=== PATIENT | female | born 1945 | race Caucasian/White ===

== ENCOUNTER 2016-07-12 12:44 | Inpatient (IN) | payer MEDICARE, OTHER ==
[~2016-07-12] VITALS: Ht 167.6 cm; Wt 123.4 kg
[2016-07-12 12:53] VITALS: BP 76/65; PULSE 86; RESP 16; TEMP 97.8; O2SAT 99
[2016-07-12] MEDS ORDERED: BACITRACIN 1 GM OINT TP ONE (13:30)
[2016-07-12] MEDS ORDERED: NACL 0.9% 1,000 ML IV ONE ×3 (13:30→16:15)
[2016-07-12 13:38] LABS: BASOPHILS # (AUTO) 0.1 K/uL (0.0-0.2); BASOPHILS % (AUTO) 0.5 % (0.0-2.0); EOSINOPHILS # (AUTO) 0.2 K/uL (0.0-0.4); EOSINOPHILS % (AUTO) 1.5 % (0.0-4.0); HEMATOCRIT 39.9 % (36-48); HEMOGLOBIN 13.4 g/dL (12.0-16.0); LYMPHOCYTES # (AUTO) 1.9 K/uL (1.0-5.5); MEAN CORPUSCULAR HEMOGLOBIN 31 pg (27-31); MEAN CORPUSCULAR HGB CONC 34 % (32-36); MEAN CORPUSCULAR VOLUME 93 fL (79.0-98.0); MONOCYTES # (AUTO) 1.3 K/uL (0.0-1.0); MONOCYTES % (AUTO) 12.5 % (1.7-9.3); NEUTROPHILS # (AUTO) 7.1 K/uL (1.8-7.7); NEUTROPHILS % (AUTO) 67.5 % (40.0-70.0); PLATELET COUNT (AUTO) 292 K/uL (130-430); WHITE BLOOD COUNT (AUTO) 10.6 K/uL (4.8-10.8)
[2016-07-12 13:47] LABS: ANION GAP 14 (5-15); CALCIUM 8.6 mg/dL (8.4-11.0); CHLORIDE 96 mmol/L (98-107); CREATININE 3.49 mg/dL (0.55-1.30); GLUCOSE 158 mg/dL (70-99); INR 1.1 (0.8-1.2); POTASSIUM 3.7 mmol/L (3.5-5.1); SODIUM SERUM 141 mmol/L (136-145); UREA NITROGEN, BLOOD 33 mg/dL (8-21)
[2016-07-12 13:52] LABS: ALANINE AMINOTRANSFERASE 23 U/L (12-78); ALBUMIN 3.7 g/dL (3.4-4.8); ASPARTATE AMINOTRANSFERASE 18 U/L (10-37); CHOLESTEROL 191 mg/dL (<200); HDL CHOLESTEROL 57 mg/dL (>55); TOTAL BILIRUBIN 0.5 mg/dL (0.0-1.0)
[2016-07-12 13:58] LABS: LDL CHOLESTEROL 105 mg/dL (<100); TRIGLYCERIDES 175 mg/dL (30-150)
[2016-07-12] MEDS ORDERED: BACL10TA PO (15:47)
[2016-07-12] MEDS ORDERED: ZOLP10TA6 PO (15:47)
[2016-07-12] MEDS ORDERED: ALEN70TA27 PO (15:47)
[2016-07-12] MEDS ORDERED: METF-303 PO (15:47)
[2016-07-12] MEDS ORDERED: IBUP-1480 PO (15:47)
[2016-07-12] MEDS ORDERED: FLUO-119 PO (15:47)
[2016-07-12] MEDS ORDERED: MECL-123 PO (15:47)
[2016-07-12] MEDS ORDERED: LEVO500T89 PO (15:47)
[2016-07-12] MEDS ORDERED: FURO10VI27 IVP (15:47)
[2016-07-12] MEDS ORDERED: GABA300S PO (15:47)
[2016-07-12] MEDS ORDERED: ENAL20TA PO (15:47)
[2016-07-12] MEDS ORDERED: HYDR-1189 PO (15:47)
[2016-07-12] MEDS ORDERED: SIMV80TA74 PO (15:47)
[2016-07-12] MEDS ORDERED: ASPI-1077 PO (15:47)
[2016-07-12 16:56] LABS: BILIRUBIN,URINE 2+ (NEGATIVE); BLOOD, URINE 1+ (NEGATIVE); CLARITY/URINE CLOUDY (CLEAR); COLOR,URINE YELLOW (YELLOW); GLUCOSE,URINE NEGATIVE (NEGATIVE); KETONES,URINE TRACE (NEGATIVE); LEUKOCYTE ESTERASE ,URINE NEGATIVE (NEGATIVE); NITRITE, URINE NEGATIVE (NEGATIVE); PROTEIN URINE 1+ (NEGATIVE); UROBILINOGEN,URINE 0.2 (0.2-1.0)
[2016-07-12 17:33] LABS: BACTERIA,URINE MODERATE /HPF (None Seen)
[2016-07-12 17:35] LABS: COARSE GRANULAR CASTS,URINE 0-10 /LPF (None Seen); FINE GRANULAR CASTS,URINE 0-10 /LPF (None Seen); MUCUS,URINE None Seen /LPF (None Seen); URINE AMORPHOUS URATE 2+ /HPF (None Seen)
[2016-07-12 19:30] VITALS: BP 85/46; PULSE 73; RESP 14; TEMP 98.4; O2SAT 99
[2016-07-12 20:00] VITALS: BP 85/46; PULSE 73; RESP 14; TEMP 98.4; O2SAT 99
[2016-07-12] MEDS ORDERED: PIPERACILLIN/TAZO 3.375/DEX-IS 50 ML IV SCH (20:30)
[2016-07-12] MEDS ORDERED: DEXTROSE 50% JECT 50 ML DISP.SYRIN IVP PRN (20:30)
[2016-07-12] MEDS ORDERED: ACETAMINOPHEN 325 MG TABLET PO PRN (20:30)
[2016-07-12 21:00] VITALS: BP 90/40; PULSE 76; RESP 20; O2SAT 97
[2016-07-12] MEDS: NACL 0.9% 1,000 ML IV SCH (21:11)
[2016-07-12] MEDS: BACLOFEN 10 MG TABLET PO SCH (21:28)
[2016-07-12] MEDS ORDERED: LEVOFLOXACIN 250 MG/D5W 50 ML IV ONE ×2 (21:30→22:07)
[2016-07-12 22:00] VITALS: BP 104/50; PULSE 76; RESP 19; O2SAT 99
[2016-07-12 23:00] VITALS: BP 82/43; PULSE 75; RESP 16; O2SAT 95
[2016-07-12] MEDS ORDERED: NOREPINEPHRINE BITARTRATE 4 MG in D5W 246 ML IV PRN (23:45)
[2016-07-12] MEDS ORDERED: NOREPINEPHRINE 4 MG/4 ML VIAL IV ONE (23:56)
[2016-07-13] VITALS (44 sets, daily range): BP systolic 85–121; BP diastolic 34–67; PULSE 69–89; RESP 13–28; TEMP 96.9–99.2; O2SAT 90–97
[2016-07-13] MEDS: ZOLPIDEM TARTRATE 5 MG TABLET PO PRN ×2 (00:13→21:08)
[2016-07-13] MEDS: NACL 0.9% 1,000 ML IV SCH ×3 (05:38→17:34)
[2016-07-13 06:36] LABS: BASOPHILS # (AUTO) 0.1 K/uL (0.0-0.2); BASOPHILS % (AUTO) 0.7 % (0.0-2.0); EOSINOPHILS # (AUTO) 0.1 K/uL (0.0-0.4); EOSINOPHILS % (AUTO) 1.5 % (0.0-4.0); HEMATOCRIT 35.4 % (36-48); HEMOGLOBIN 11.9 g/dL (12.0-16.0); LYMPHOCYTES # (AUTO) 1.6 K/uL (1.0-5.5); LYMPHOCYTES % (AUTO) 17.6 % (20.5-51.5); MEAN CORPUSCULAR HEMOGLOBIN 31 pg (27-31); MEAN CORPUSCULAR HGB CONC 34 % (32-36); MEAN CORPUSCULAR VOLUME 93 fL (79.0-98.0); MONOCYTES % (AUTO) 11.2 % (1.7-9.3); NEUTROPHILS # (AUTO) 6.4 K/uL (1.8-7.7); PLATELET COUNT (AUTO) 268 K/uL (130-430); RED CELL DISTRIBUTION WIDTH 12.1 % (9.0-15.0); WHITE BLOOD COUNT (AUTO) 9.2 K/uL (4.8-10.8)
[2016-07-13 07:16] LABS: ALANINE AMINOTRANSFERASE 23 U/L (12-78); ALBUMIN 3.1 g/dL (3.4-4.8); ANION GAP 8 (5-15); ASPARTATE AMINOTRANSFERASE 34 U/L (10-37); CALCIUM 7.8 mg/dL (8.4-11.0); CHLORIDE 103 mmol/L (98-107); CREATININE 2.56 mg/dL (0.55-1.30); GLUCOSE 111 mg/dL (70-99); POTASSIUM 3.4 mmol/L (3.5-5.1); SODIUM SERUM 141 mmol/L (136-145); TOTAL BILIRUBIN 0.4 mg/dL (0.0-1.0); TOTAL PROTEIN, SERUM 6.4 g/dL (6.4-8.3); UREA NITROGEN, BLOOD 35 mg/dL (8-21)
[2016-07-13] MEDS: BACLOFEN 10 MG TABLET PO SCH ×2 (08:58→21:08)
[2016-07-13] MEDS: ASPIRIN 81 MG TAB.CHEW PO SCH (08:58)
[2016-07-13] MEDS: PANTOPRAZOLE SODIUM 40 MG/VIAL (PROTONIX) IVP SCH (08:58)
[2016-07-13] MEDS: FLUoxetine HCL 20 MG CAPSULE (PROzac) PO SCH (08:58)
[2016-07-13] MEDS: LACTOBACILLUS RHAMNOSUS GG 1 CAP CAPSULE PO SCH ×2 (09:01→21:08)
[2016-07-13] MEDS ORDERED: HYDROCORTISONE SOD SUCC 100 MG/2 ML VIAL IVP ONE (11:15)
[2016-07-13] MEDS: PIPERACILLIN/TAZO 3.375/DEX-IS 50 ML IV SCH ×3 (11:43→23:17)
[2016-07-13] MEDS ORDERED: POTASSIUM CHLORIDE 20 MEQ TAB.PRT.SR PO ONE (17:15)
[2016-07-13] MEDS: INSULIN REGULAR, HUMAN 100 UNITS/ML, 10 ML VIAL (novoLIN R) SUBCUT PRN ×2 (17:39→23:31)
[2016-07-13] MEDS: HYDROCORTISONE SOD SUCC 100 MG/2 ML VIAL IVP SCH (21:08)
[2016-07-13] MEDS: MORPHINE 2 MG/ML INJ. SYRINGE IVP PRN (21:09)
[2016-07-14] VITALS (16 sets, daily range): BP systolic 99–131; BP diastolic 54–91; PULSE 59–91; RESP 16–25; TEMP 97.2–98.9; O2SAT 91–97; Ht 167.6 cm; Wt 123.4 kg
[2016-07-14] MEDS: PIPERACILLIN/TAZO 3.375/DEX-IS 50 ML IV SCH ×4 (05:59→23:35)
[2016-07-14] MEDS: HYDROCORTISONE SOD SUCC 100 MG/2 ML VIAL IVP SCH ×3 (05:59→20:56)
[2016-07-14 06:29] LABS: ALANINE AMINOTRANSFERASE 23 U/L (12-78); ALBUMIN 3.1 g/dL (3.4-4.8); ANION GAP 6 (5-15); ASPARTATE AMINOTRANSFERASE 25 U/L (10-37); CALCIUM 8.1 mg/dL (8.4-11.0); CHLORIDE 108 mmol/L (98-107); CREATININE 1.64 mg/dL (0.55-1.30); GLUCOSE 141 mg/dL (70-99); POTASSIUM 3.9 mmol/L (3.5-5.1); SODIUM SERUM 142 mmol/L (136-145); TOTAL BILIRUBIN 0.4 mg/dL (0.0-1.0); TOTAL PROTEIN, SERUM 6.5 g/dL (6.4-8.3); UREA NITROGEN, BLOOD 31 mg/dL (8-21)
[2016-07-14 07:14] LABS: BASOPHILS % (AUTO) 0.3 % (0.0-2.0); EOSINOPHILS % (AUTO) 0.1 % (0.0-4.0); HEMATOCRIT 32.8 % (36-48); LYMPHOCYTES # (AUTO) 1.1 K/uL (1.0-5.5); LYMPHOCYTES % (AUTO) 11.9 % (20.5-51.5); MEAN CORPUSCULAR HEMOGLOBIN 31 pg (27-31); MEAN CORPUSCULAR HGB CONC 34 % (32-36); MEAN CORPUSCULAR VOLUME 93 fL (79.0-98.0); MONOCYTES # (AUTO) 0.5 K/uL (0.0-1.0); MONOCYTES % (AUTO) 5.4 % (1.7-9.3); NEUTROPHILS # (AUTO) 7.2 K/uL (1.8-7.7); NEUTROPHILS % (AUTO) 82.3 % (40.0-70.0); PLATELET COUNT (AUTO) 209 K/uL (130-430); RED BLOOD CELL COUNT(AUTO) 3.53 MIL/uL (4.2-6.2); RED CELL DISTRIBUTION WIDTH 11.9 % (9.0-15.0)
[2016-07-14 07:31] LABS: WHITE BLOOD COUNT (AUTO) 8.8 K/uL (4.8-10.8)
[2016-07-14] MEDS: FLUoxetine HCL 20 MG CAPSULE (PROzac) PO SCH (08:52)
[2016-07-14] MEDS: BACLOFEN 10 MG TABLET PO SCH ×2 (08:52→20:33)
[2016-07-14] MEDS: ASPIRIN 81 MG TAB.CHEW PO SCH (08:52)
[2016-07-14] MEDS: PANTOPRAZOLE SODIUM 40 MG/VIAL (PROTONIX) IVP SCH (08:53)
[2016-07-14] MEDS: MORPHINE 2 MG/ML INJ. SYRINGE IVP PRN ×3 (08:53→23:38)
[2016-07-14] MEDS: LACTOBACILLUS RHAMNOSUS GG 1 CAP CAPSULE PO SCH ×2 (08:53→20:33)
[2016-07-14] MEDS: INSULIN REGULAR, HUMAN 100 UNITS/ML, 10 ML VIAL (novoLIN R) SUBCUT PRN (11:25)
[2016-07-14] MEDS: NACL 0.9% 1,000 ML IV SCH (14:26)
[2016-07-14] MEDS ORDERED: LEVOFLOXACIN 250 MG/D5W 50 ML IV SCH (21:00)
[2016-07-14] MEDS: ZOLPIDEM TARTRATE 5 MG TABLET PO PRN (23:34)
[2016-07-15 03:47] VITALS: BP 128/56; PULSE 64; RESP 16; TEMP 97.2; O2SAT 93
[2016-07-15] MEDS: PIPERACILLIN/TAZO 3.375/DEX-IS 50 ML IV SCH ×2 (05:40→12:59)
[2016-07-15] MEDS: NACL 0.9% 1,000 ML IV SCH ×2 (05:43→08:54)
[2016-07-15 07:15] LABS: ANION GAP 7 (5-15); CALCIUM 8.5 mg/dL (8.4-11.0); CHLORIDE 109 mmol/L (98-107); CREATININE 1.01 mg/dL (0.55-1.30); GLUCOSE 120 mg/dL (70-99); POTASSIUM 3.7 mmol/L (3.5-5.1); SODIUM SERUM 142 mmol/L (136-145); UREA NITROGEN, BLOOD 23 mg/dL (8-21)
[2016-07-15 08:00] VITALS: BP 125/62; PULSE 65; RESP 16; TEMP 98; O2SAT 97
[2016-07-15] MEDS: PANTOPRAZOLE SODIUM 40 MG/VIAL (PROTONIX) IVP SCH (08:37)
[2016-07-15] MEDS: LACTOBACILLUS RHAMNOSUS GG 1 CAP CAPSULE PO SCH (08:37)
[2016-07-15] MEDS: ASPIRIN 81 MG TAB.CHEW PO SCH (08:38)
[2016-07-15] MEDS: FLUoxetine HCL 20 MG CAPSULE (PROzac) PO SCH (08:38)
[2016-07-15] MEDS: BACLOFEN 10 MG TABLET PO SCH (08:38)
[2016-07-15] MEDS: HYDROCORTISONE SOD SUCC 100 MG/2 ML VIAL IVP SCH (08:38)
[2016-07-15] MEDS: MORPHINE 2 MG/ML INJ. SYRINGE IVP PRN (08:55)
[2016-07-15] MEDS ORDERED: BALSAM PERU/CASTOR OIL 60 GM OINT...G. TP SCH (09:00)
[2016-07-15 11:25] VITALS: BP 126/71; PULSE 58; RESP 19; TEMP 97.9; O2SAT 93
[2016-07-15 13:10] VITALS: BP 126/71; PULSE 64; RESP 16; TEMP 97.5; O2SAT 98
[2016-07-15 15:37] VITALS: BP 116/56; PULSE 63; RESP 16; TEMP 97.1; O2SAT 93
== END 2016-07-15 15:25 | disposition home or self-care (01) | DRG 871 ==
LOC: SED 12:44 → SMU 16:49 → SIC 19:25 → STU 07-14 12:20
PROVIDERS: ADMIT Internal Medicine Hospice and Palliative Medicine; ATTEND Internal Medicine Hospice and Palliative Medicine
DX: A41.9 Sepsis, unspecified organism (principal); R65.21 Severe sepsis with septic shock; N17.0 Acute kidney failure with tubular necrosis; G93.41 Metabolic encephalopathy; I50.33 Acute on chronic diastolic (congestive) heart failure; I13.0 Hypertensive heart and chronic kidney disease with heart failure and stage 1 through stage 4 chronic kidney disease, or unspecified chronic kidney disease; E78.5 Hyperlipidemia, unspecified; E11.22 Type 2 diabetes mellitus with diabetic chronic kidney disease; N18.9 Chronic kidney disease, unspecified; Z96.653 Presence of artificial knee joint, bilateral; Z90.49 Acquired absence of other specified parts of digestive tract; Z90.710 Acquired absence of both cervix and uterus; Z88.6 Allergy status to analgesic agent; Z88.1 Allergy status to other antibiotic agents; Z79.899 Other long term (current) drug therapy
CPT/HCPCS: 36415; 70450-TC; 71010; 76700-TC; 80048; 80053; 80061; 81000-TC; 82962; 83605; 83880; 84484; 85025; 85610-TC; 85730-TC; 87040-TC; 87081; 87086; 87230-TC; 93005; 93306; 93970; 96360; 96361; 97110-GP; 97116-GP; 97530-GP; 99285; C9113; J1720; J1815; J1956; J2270; J2543; J7030; J7040; J7050

== ENCOUNTER 2016-10-18 10:37 | Inpatient (IN) | payer OTHER ==
[2016-10-18] VITALS (13 sets, daily range): BP systolic 117–152; BP diastolic 59–84; PULSE 74–108; RESP 12–35; TEMP 97.3–98.4; O2SAT 66–95
[~2016-10-18] VITALS: Ht 165.1 cm; Wt 116.6 kg
[~2016-10-18 10:37] MED LIST: ALEN70TA27 PO; ASPI-1077 PO; BACL10TA PO; ENAL20TA PO; FLUO-119 PO; FURO10VI27 IVP; GABA300S PO; HYDR-1189 PO; IBUP-1480 PO; LEVO500T89 PO; MECL-123 PO; METF-303 PO; SIMV80TA74 PO; ZOLP10TA6 PO
--- NOTE | 2016-10-18 10:37 | NUR ---
Patient to ER bed 2 to gown for evaluation. Side rails up. Report received by Andrew.
--- NOTE | 2016-10-18 10:38 | NUR ---
ER at bedside examining patient.
--- NOTE | 2016-10-18 10:39 | NUR ---
Pt bib Bls squad 61. Reports family found pt lethargic this morning and difficult to wake up. Pt is lethargic. Oriented to name and place. Closes eyes while speaking. Pt with difficulty breathing placed on 2L/min, NC. O2 sat is 88%, Abg to be drawn.
--- NOTE | 2016-10-18 10:40 | NUR ---
# 20 gauge angiocath placed to left hand. Use of asceptic technique. Opsite placed over site. Blood return noted. Blood for lab drawn from site. Flushed with 10 cc of normal saline. No evidence of infiltration noted. Patient tolerated well.
--- NOTE | 2016-10-18 10:41 | NUR ---
EKG performed at by ELLEN Easton. Physician given copy of EKG for review.
[2016-10-18] MEDS ORDERED: NALOXONE HCL 2 MG/2 ML SYR ONE (10:54)
[2016-10-18] MEDS ORDERED: NALOXONE HCL 0.4 MG/ML AMP (NARCAN) IVP ONE (11:00)
--- NOTE | 2016-10-18 11:00 | NUR ---
Pt cont with dyspnea. O2 is 89%. Placed on nonrebreather.
[2016-10-18 11:04] LABS: BASOPHILS # (AUTO) 0.1 K/uL (0.0-0.2); BASOPHILS % (AUTO) 1.2 % (0.0-2.0); EOSINOPHILS % (AUTO) 0.2 % (0.0-4.0); HEMATOCRIT 37.7 % (36-48); HEMOGLOBIN 12.6 g/dL (12.0-16.0); LYMPHOCYTES # (AUTO) 0.8 K/uL (1.0-5.5); LYMPHOCYTES % (AUTO) 8.1 % (20.5-51.5); MEAN CORPUSCULAR HEMOGLOBIN 31 pg (27-31); MEAN CORPUSCULAR HGB CONC 34 % (32-36); MEAN CORPUSCULAR VOLUME 92 fL (79.0-98.0); MONOCYTES # (AUTO) 0.9 K/uL (0.0-1.0); MONOCYTES % (AUTO) 9.1 % (1.7-9.3); NEUTROPHILS # (AUTO) 8.1 K/uL (1.8-7.7); NEUTROPHILS % (AUTO) 81.4 % (40.0-70.0); PLATELET COUNT (AUTO) 228 K/uL (130-430); RED BLOOD CELL COUNT(AUTO) 4.13 MIL/uL (4.2-6.2); RED CELL DISTRIBUTION WIDTH 12.8 % (9.0-15.0); WHITE BLOOD COUNT (AUTO) 9.9 K/uL (4.8-10.8)
--- NOTE | 2016-10-18 11:07 | NUR ---
Pt cont to desat. 85%. Placed on Bipap 16/6, 20, 50%
[2016-10-18 11:16] LABS: PROTHROMBIN TIME 11.2 SECS (9.5-12.5)
[2016-10-18 11:17] LABS: ANION GAP 6 (5-15); CALCIUM 8.6 mg/dL (8.4-11.0); CHLORIDE 105 mmol/L (98-107); CREATININE 1.38 mg/dL (0.55-1.30); GLUCOSE 251 mg/dL (70-99); POTASSIUM 4.9 mmol/L (3.5-5.1); SODIUM SERUM 138 mmol/L (136-145); UREA NITROGEN, BLOOD 24 mg/dL (8-21)
[2016-10-18 11:21] LABS: ALANINE AMINOTRANSFERASE 220 U/L (12-78); ALBUMIN 3.4 g/dL (3.4-4.8); ASPARTATE AMINOTRANSFERASE 335 U/L (10-37); TOTAL BILIRUBIN 0.9 mg/dL (0.0-1.0)
--- NOTE | 2016-10-18 11:25 | NUR ---
# 16 FR Michael catheter with use of sterile technique. Immediate return of 300 cc Clear fay urine noted. Bedside drainage bag placed below level of bladder. Urine sample collected and sent to lab. Pt tolerated procedure well.
[2016-10-18] MEDS ORDERED: FUROSEMIDE 20 MG/2 ML VIAL IVP ONE ×2 (11:30→11:45)
[2016-10-18 11:38] LABS: BILIRUBIN,URINE NEGATIVE (NEGATIVE); CLARITY/URINE CLEAR (CLEAR); COLOR,URINE YELLOW (YELLOW); GLUCOSE,URINE NEGATIVE (NEGATIVE); KETONES,URINE NEGATIVE (NEGATIVE); LEUKOCYTE ESTERASE ,URINE NEGATIVE (NEGATIVE); NITRITE, URINE NEGATIVE (NEGATIVE); PROTEIN URINE TRACE (NEGATIVE); UROBILINOGEN,URINE 0.2 (0.2-1.0)
[2016-10-18 11:39] LABS: BLOOD, URINE TRACE (NEGATIVE)
[2016-10-18] MEDS ORDERED: NEU300 PO (11:44)
[2016-10-18] MEDS ORDERED: OXYC-133 PO (11:44)
[2016-10-18] MEDS ORDERED: FURO-149 PO (11:44)
--- NOTE | 2016-10-18 11:45 | NUR ---
Medication reconciliation completed with information provided by daughter at bedside. Any prior medication reconciliation on file was reviewed and corrected.
[2016-10-18 11:47] LABS: ABG TOTAL HEMOGLOBIN 13.5 G/dL (12.0-18.0); BLOOD GAS PH 7.277 (7.350-7.450)
[2016-10-18 11:48] LABS: BLOOD GAS COHb% 0.9 % (0.5-1.5); BLOOD GAS HHB 13.8 % (0.0-6.0); BLOOD O2Hb% 84.7 % (94.0-97.0)
[2016-10-18 11:49] LABS: BLOOD GAS PH 7.336 (7.350-7.450)
[2016-10-18 11:50] LABS: ABG TOTAL HEMOGLOBIN 13.4 G/dL (12.0-18.0); BLOOD GAS BASE EXCESS -2.6 mmol/L (-3.0-3.0); BLOOD GAS COHb% 0.7 % (0.5-1.5); BLOOD GAS HHB 3.8 % (0.0-6.0); BLOOD O2Hb% 94.9 % (94.0-97.0)
[2016-10-18 12:11] LABS: BARBITURATE, URINE NEGATIVE (NEG <=200); METHAMPHETAMINES SCREEN,URINE NEGATIVE (NEG <=500); URINE AMPHETAMINE NEGATIVE (NEG <=500); URINE METHADONE NEGATIVE (NEG <=200)
[2016-10-18 12:12] LABS: BENZODIAZEPINE, URINE NEGATIVE (NEG <=150); CANNABINOID, URINE NEGATIVE (NEG <=50); COCAINE, URINE NEGATIVE (NEG <=150); OPIATE, URINE NEGATIVE (NEG <=100); PHENCYCLIDINE SCREEN,URINE NEGATIVE (NEG <=25); UR TRICYCLIC ANTIDEPRESSANTS NEGATIVE (NEG <=300); URINE OXYCODONE SCREEN POSITIVE (NEG <=100); URINE PROPOXYPHENE SCREEN NEGATIVE (NEG <=300)
[2016-10-18 12:22] LABS: ACETAMINOPHEN < 1 ug/mL (1-30); ALCOHOL, BLOOD < 3 mg/dL (<10)
--- NOTE | 2016-10-18 13:50 | NUR ---
Patient will be admitted to [facility]. Admitted to ICU unit. Will go to room bed 5. Belongings list completed. Summary report printed. Report be given at bedside to RN. Tyrese . Transfer to ICU bed 5 via ACLS protocol. Licensed nurse present. IV present no signs or symptoms of infiltration.
--- NOTE | 2016-10-18 14:00 | NUR ---
Transfer Pt received from ER. Report given by ELLEN Johnson. Vital signs stable. Pt is AAO X1, non verbal. Chest rise and fall noted. Pt on Bipap O2 50%, 15/6 BUR20.
--- NOTE | 2016-10-18 15:04 | NUR ---
CONSULT CALLED DOCTOR DESIREE BRIGGS SPOKE WITH DAISY REASON RESPIRATORY FAILURE REQUESTING DOCTOR KARLA
[2016-10-18] MEDS ORDERED: IPRATROPIUM BROM 0.5 MG/2.5 ML VIAL.NEB (ATROVENT) INH PRN (15:45)
[2016-10-18] MEDS ORDERED: DEXTROSE 50% JECT 50 ML DISP.SYRIN IVP PRN (15:45)
[2016-10-18] MEDS ORDERED: ALBUTEROL SULFATE 0.083% 2.5 MG/3 ML VIAL.NEB INH PRN (15:45)
--- NOTE | 2016-10-18 15:45 | NUR ---
Dr. Rivera at bedside with patient and family.
--- NOTE | 2016-10-18 16:00 | NUR ---
Patient Update Patient noted to be more awake and arousable to pain, oriented x2, able to verbalize needs. Son, Favio, at bedside with patient. Patient asked for water, informed patient of NPO status, provided mouth swabs. Patient denies pain or discomfort. Patient repositioned. Will continue to monitor.
[2016-10-18] MEDS ORDERED: DEXTROSE 50%-WATER 50 ML DISP.SYRIN IVP PRN ×2 (16:30)
[2016-10-18] MEDS ORDERED: GLUCOSE 15 GM GEL (in 37.5 GM TUBE) PO PRN ×2 (16:30)
[2016-10-18] MEDS: FLUoxetine HCL 20 MG CAPSULE (PROzac) PO SCH ×2 (17:48→21:00)
--- NOTE | 2016-10-18 18:00 | NUR ---
Patient Update Patient verbalized feeling nauseous, provided patient with emesis parrish and paged Dr. Rivera. Awaiting call back.
--- NOTE | 2016-10-18 18:45 | NUR ---
Dr. Syed at bedside with patient and family. Dr. Syed aware of patient c/o nausea. New orders made, will continue with plan of care.
[2016-10-18] MEDS: ALBUTEROL SULFATE 0.083% 2.5 MG/3 ML VIAL.NEB INH SCH ×2 (19:39→23:00)
[2016-10-18] MEDS: IPRATROPIUM BROM 0.5 MG/2.5 ML VIAL.NEB (ATROVENT) INH SCH ×2 (19:40→23:00)
[2016-10-18] MEDS: ONDANSETRON HCL 4 MG/2 ML VIAL IVP PRN (19:42)
[2016-10-18] MEDS: LEVOFLOXACIN 500 MG/D5W 100 ML IV SCH (19:45)
--- NOTE | 2016-10-18 19:55 | NUR ---
Patient Update New IV sites on RFA #20G and LFA #20G, no infiltration or erythema noted. Removed IV on R hand 20G d/t loose catheter, catheter tip intact, bleeding controlled. Administered zofran IVP PRN for nausea. Patient also receiving breathing tx, but c/o increased nausea. Notified RT, stopped breathing treatment, returned patient back to mask 50%. Will continue to monitor.
--- NOTE | 2016-10-18 21:00 | NUR ---
ASSESSMENT Pt opens eyes to verbal stimuli. Speech clear. Pt c/o nausea, after receiving Zofran. Oxygen in use, via mask 50%. O2 level 88- 93% with mask, HR 90's. 2 Saline lock sites present, right and left forearms 20ga, no redness or swelling noted @ sites. Left foot with nancy wrap and ortho shoe. Left lower leg with swelling, and redness.
--- NOTE | 2016-10-18 21:30 | NUR ---
TALKED TO DR RAMÍREZ , NOTIFIED OF TROPONIN RESULT AND CLARIFIED THAT PT IS NPO AND NO IV ORDER.SHE SAID THAT ITS OK AND WILL RE-EVAL IN AM.
[2016-10-18] MEDS: HEPARIN SODIUM,PORCINE 5000 UNITS/ML VIAL SUBCUT SCH (22:42)
[2016-10-18] MEDS: METOCLOPRAMIDE HCL 10 MG/2 ML VIAL IVP PRN (23:46)
[2016-10-19] VITALS (15 sets, daily range): BP systolic 107–138; BP diastolic 49–76; PULSE 74–85; RESP 11–27; TEMP 97.6–99.7; O2SAT 90–97; Ht 165.1 cm; Wt 116.6 kg
[2016-10-19] MEDS: metroNIDAZOLE 500 mg/NS 100 ML IV SCH ×5 (00:31→23:47)
[2016-10-19] MEDS: INSULIN REGULAR, HUMAN 100 UNITS/ML, 10 ML VIAL (novoLIN R) SUBCUT PRN ×2 (00:36→05:45)
[2016-10-19] MEDS: ALBUTEROL SULFATE 0.083% 2.5 MG/3 ML VIAL.NEB INH SCH ×6 (03:00→23:00)
[2016-10-19] MEDS: IPRATROPIUM BROM 0.5 MG/2.5 ML VIAL.NEB (ATROVENT) INH SCH ×6 (03:00→23:00)
[2016-10-19] MEDS: ONDANSETRON HCL 4 MG/2 ML VIAL IVP PRN ×3 (03:12→20:18)
[2016-10-19] MEDS: METOCLOPRAMIDE HCL 10 MG/2 ML VIAL IVP PRN ×3 (05:10→23:45)
--- NOTE | 2016-10-19 05:26 | NUR ---
DR GEOVANNA Steinberg notified regarding Pt's c/o pain. Orders received. Toradol 30mg IVP Q 8HR PRN.
[2016-10-19] MEDS ORDERED: KETOROLAC TROMETHAMINE 30 MG VIAL IVP PRN (05:30)
[2016-10-19 06:39] LABS: BASOPHILS # (AUTO) 0.1 K/uL (0.0-0.2); BASOPHILS % (AUTO) 0.6 % (0.0-2.0); EOSINOPHILS % (AUTO) 0.1 % (0.0-4.0); HEMATOCRIT 34.9 % (36-48); LYMPHOCYTES # (AUTO) 1.4 K/uL (1.0-5.5); LYMPHOCYTES % (AUTO) 12.4 % (20.5-51.5); MEAN CORPUSCULAR HEMOGLOBIN 31 pg (27-31); MEAN CORPUSCULAR HGB CONC 34 % (32-36); MEAN CORPUSCULAR VOLUME 91 fL (79.0-98.0); MONOCYTES # (AUTO) 1.1 K/uL (0.0-1.0); MONOCYTES % (AUTO) 10.1 % (1.7-9.3); NEUTROPHILS # (AUTO) 8.5 K/uL (1.8-7.7); NEUTROPHILS % (AUTO) 76.8 % (40.0-70.0); PLATELET COUNT (AUTO) 205 K/uL (130-430); RED BLOOD CELL COUNT(AUTO) 3.83 MIL/uL (4.2-6.2); RED CELL DISTRIBUTION WIDTH 12.4 % (9.0-15.0); WHITE BLOOD COUNT (AUTO) 11.1 K/uL (4.8-10.8)
[2016-10-19 06:45] LABS: ALANINE AMINOTRANSFERASE 184 U/L (12-78); ALBUMIN 3.3 g/dL (3.4-4.8); ANION GAP 10 (5-15); ASPARTATE AMINOTRANSFERASE 191 U/L (10-37); CALCIUM 9.1 mg/dL (8.4-11.0); CHLORIDE 104 mmol/L (98-107); CREATININE 1.04 mg/dL (0.55-1.30); GLUCOSE 130 mg/dL (70-99); POTASSIUM 3.6 mmol/L (3.5-5.1); SODIUM SERUM 141 mmol/L (136-145); TOTAL BILIRUBIN 0.6 mg/dL (0.0-1.0); TOTAL PROTEIN, SERUM 6.6 g/dL (6.4-8.3); UREA NITROGEN, BLOOD 20 mg/dL (8-21)
--- NOTE | 2016-10-19 07:45 | NUR ---
AM Shift Assessment Patient AAOx4, able to verbalize needs. Patient's son, Favio, at bedside. Respirations even and unlabored on 4L O2 via NC. Patient denies any pain, n/v currently. Skin warm and dry. IV SL 20G on RFA and LFA, both sites intact, patent, no infiltration or erythema noted. L foot with dressing, nancy bandage, and boot, clean, dry, and intact. No drainage noted from site. Peripheral pulses palpable on all extremities. Michael in place draining fay urine. Adventitious lung sounds. Heart sounds regular, SR on monitor, HR 79. Bed locked in lowest position. Call light in reach. Will continue to monitor.
[2016-10-19] MEDS: HEPARIN SODIUM,PORCINE 5000 UNITS/ML VIAL SUBCUT SCH ×2 (08:35→20:27)
--- NOTE | 2016-10-19 08:35 | NUR ---
Nutrition Update Dain scale of 12 noted. Pt admitted for Respiratory failure. Diet: NPO BMI: 42.8 kg/m2. RD to follow per nutrition care standards.
--- NOTE | 2016-10-19 08:38 | NUR ---
Called Dr. Falcon with a consult, spoke with Bushra from the exchange
[2016-10-19 08:39] LABS: BLOOD GAS BASE EXCESS 4.3 mmol/L (-3.0-3.0); BLOOD GAS PH 7.446 (7.350-7.450)
[2016-10-19 08:40] LABS: ABG TOTAL HEMOGLOBIN 12.5 G/dL (12.0-18.0); BLOOD GAS HHB 5.6 % (0.0-6.0); BLOOD O2Hb% 94.4 % (94.0-97.0)
[2016-10-19] MEDS: FLUoxetine HCL 20 MG CAPSULE (PROzac) PO SCH ×3 (08:40→20:18)
[2016-10-19] MEDS: ASPIRIN 81 MG TAB.CHEW PO SCH (08:40)
[2016-10-19] MEDS: ENALAPRIL MALEATE 10 MG TABLET (VASOTEC) PO SCH (08:49)
[2016-10-19] MEDS ORDERED: FUROSEMIDE 20 MG/2 ML VIAL IVP SCH (09:00)
--- NOTE | 2016-10-19 10:00 | NUR ---
Dr. Rivera at bedside with patient and family member. Addendum: 10/19/16 at 1427 by Germania Ceja RN CORRECTION TO TIME: [id number]
--- NOTE | 2016-10-19 10:47 | NUR ---
REPORT RECEIVED FROM ELLEN BEVERLY IN ICU. PT TO BE TRANSFERRED TO [facility] ON TELEMETRY MONITORING.
--- NOTE | 2016-10-19 11:38 | NUR ---
PATIENT TRANSFERRED FROM ICU BED TO MED-SURG BED. PLACED ON MONITOR, O2 SENSOR. SON AT BEDSIDE. SLEEVE SETTER SAFETY STITCH FROM [employer] AT BEDSIDE SPEAKING WITH SON. PATIENT REPORTS PAIN WITH EVERY MOVEMENT, TOUCH OR REPOSITIONING. REQUIRED FIVE PERSON ASSIST TO TRANSFER WITH BACK BOARD FROM ONE BED TO THE NEXT. TRANSPORTED ON 4LPM O2 VIA NC, ON MONITOR, SINUS RHYTHM, O2 SATURATIONS 93-97%
--- NOTE | 2016-10-19 11:39 | NUR ---
Transfer to [facility] Patient stable for transfer to [facility] via bed/gurney with continuous monitoring and O2 4L via NC. No acute distress noted. All belongings sent with patient. [id number] given to Prisca HUGHES with SBAR tool.
--- NOTE | 2016-10-19 12:58 | NUR ---
PT VOMITING, MEDICATED WITH ZOFRAN.
--- NOTE | 2016-10-19 13:40 | NUR ---
PATIENT STILL DRY HEAVING, MEDICATIONS HELD FOR NOW. PATIENT HAD BEEN SIPPING WATER AND THAT CAUSED THE VOMITING.
[2016-10-19] MEDS ORDERED: COMMUNICATION ORDER XX ONE (14:15)
--- NOTE | 2016-10-19 14:50 | NUR ---
DR RAMÍREZ IN TO SEE PATIENT NEW ORDERS FOR COMPAZINE GIVEN. PT NO LONGER VOMITING BUT IS REPORTING NAUSEA. PT ATE JELLO AND DRANK A JUICE AND A DIET 7UP WITHOUT VOMITING.
[2016-10-19] MEDS: PROCHLORPERAZINE EDISYLATE 10 MG/2 ML VIAL IVP PRN (15:06)
--- NOTE | 2016-10-19 16:19 | NUR ---
PT REPOSITIONED TO LEFT SIDE OF BED SO THAT SHE WOULD HAVE M ORE ROOM TO TURN TO THE RIGHT. PT STATED SHE WAS TOO WEAK TO MOVE HERSELF IN BED. PT STARTED YELLING THAT SHE COULDNT BREATHE WHILE BEING REPOSITIONED. O2SATS NORMAL, PT REMAINED PINK AND WAS ABLE TO YELL IN FULL SENTENCES
[2016-10-19] MEDS: LEVOFLOXACIN 500 MG/D5W 100 ML IV SCH (18:19)
--- NOTE | 2016-10-19 18:22 | NUR ---
CLOSING NOTES PT NOTED TO HAVE TEMP OF 99.6, 100.4...REASSESSED AT 1820 AND TEMP WAS 98.6 PT CONTINUES TO C/O NAUSEA. GIVEN REGLAN IV. PT STATES SHE HAD STOPPED TAKING LASIX APPROX 3 DAYS PRIOR TO SURGERY WHICH WAS THREE DAYS AGO. STATES LASIX MADE HER NAUSEOUS AND DUE TO HER DISABILITIES SHE ALSO HAD A HARD TIME GETTING TO THE RESTROOM. PT SON IS AT BEDSIDE. POC EXPLAINED TO HIM AND DAUGHTER. ADVISED THEM MD WOULD BE IN VERY EARLY TOMORROW AND TO BE HERE IF THEY WOULD LIKE TO SPEAK TO HIM.
--- NOTE | 2016-10-19 19:15 | NUR ---
Initial Notes Recvd pt in bed a/a/o x3 with son @ bedside. No s/s of any distress noted. IV noted to L and R f/a g 20, no infiltrate with good blood return. Bue are strong with weakness to ble noted. Dressing is noted to L ankle, no bleeding and c/o pain noted. Edema noted to BLE. Discussed plan of care with pt and verbalized understanding. Bed in low position, with call light within reach.Will cont to monitor.
--- NOTE | 2016-10-19 20:20 | NUR ---
Admin Zofran prn for n/v Admin zofran for n/v. Will cont to monitor.
[2016-10-19] MEDS: KETOROLAC TROMETHAMINE 30 MG VIAL IVP PRN (23:45)
--- NOTE | 2016-10-19 23:50 | NUR ---
Admin Reglan prn for n/v Admin Reglan for n/v. Will cont to monitor.
--- NOTE | 2016-10-20 01:50 | NUR ---
Rounds Pt is comfortably sleeping at this time. No s/s of any distress noted. Call light within reach. Will cont to monitor.
[2016-10-20] MEDS: PROCHLORPERAZINE EDISYLATE 10 MG/2 ML VIAL IVP PRN (03:02)
--- NOTE | 2016-10-20 03:02 | NUR ---
Admin compazine prn for n/v Admin compazine prn for n/v. Will cont monitor.
[2016-10-20 04:09] VITALS: BP 134/62; PULSE 75; RESP 15; TEMP 97.7; O2SAT 96
[2016-10-20] MEDS: metroNIDAZOLE 500 mg/NS 100 ML IV SCH ×2 (05:14→11:57)
[2016-10-20] MEDS: ONDANSETRON HCL 4 MG/2 ML VIAL IVP PRN ×2 (05:16→12:34)
--- NOTE | 2016-10-20 07:00 | NUR ---
Final notes Pt is comfortably resting @ this time. No s/s of any distress noted. All needs met and anticipated by noc nurses. Bed in low position with side rails up x2. Call light within reach, endorsed.
[2016-10-20 07:11] LABS: BASOPHILS # (AUTO) 0.1 K/uL (0.0-0.2); BASOPHILS % (AUTO) 0.7 % (0.0-2.0); EOSINOPHILS % (AUTO) 0.4 % (0.0-4.0); HEMATOCRIT 34.2 % (36-48); HEMOGLOBIN 11.5 g/dL (12.0-16.0); LYMPHOCYTES # (AUTO) 1.4 K/uL (1.0-5.5); LYMPHOCYTES % (AUTO) 16.5 % (20.5-51.5); MEAN CORPUSCULAR HEMOGLOBIN 31 pg (27-31); MEAN CORPUSCULAR HGB CONC 34 % (32-36); MEAN CORPUSCULAR VOLUME 93 fL (79.0-98.0); MONOCYTES % (AUTO) 11.4 % (1.7-9.3); NEUTROPHILS # (AUTO) 6.3 K/uL (1.8-7.7); PLATELET COUNT (AUTO) 209 K/uL (130-430); RED BLOOD CELL COUNT(AUTO) 3.69 MIL/uL (4.2-6.2); RED CELL DISTRIBUTION WIDTH 12.1 % (9.0-15.0); WHITE BLOOD COUNT (AUTO) 8.8 K/uL (4.8-10.8)
[2016-10-20 07:18] LABS: CHLORIDE 103 mmol/L (98-107); CREATININE 1.38 mg/dL (0.55-1.30); POTASSIUM 3.5 mmol/L (3.5-5.1); SODIUM SERUM 138 mmol/L (136-145); UREA NITROGEN, BLOOD 22 mg/dL (8-21)
[2016-10-20 07:44] LABS: ANION GAP < 3 (5-15)
[2016-10-20 08:00] VITALS: BP 128/59; PULSE 74; RESP 20; TEMP 98.9; O2SAT 96
--- NOTE | 2016-10-20 08:00 | NUR ---
OPENING NOTE PATIENT IS AWAKE, ALERT. SKIN PINK, WARM AND DRY. LUNGS CLEAR TO BASES. NO CRACKLES NOTED.
[2016-10-20] MEDS: ENALAPRIL MALEATE 10 MG TABLET (VASOTEC) PO SCH (08:29)
[2016-10-20] MEDS: ASPIRIN 81 MG TAB.CHEW PO SCH (08:29)
[2016-10-20] MEDS: HEPARIN SODIUM,PORCINE 5000 UNITS/ML VIAL SUBCUT SCH ×2 (08:31→20:51)
[2016-10-20 09:16] LABS: CALCIUM 8.8 mg/dL (8.4-11.0); GLUCOSE 136 mg/dL (70-99)
--- NOTE | 2016-10-20 10:00 | NUR ---
PATIENT MEDICATED PER ORDERS. REPORTS ONLY MILD NAUSEA, NO DRY HEAVING TODAY
[2016-10-20 11:28] VITALS: BP 139/76; PULSE 70; RESP 19; TEMP 97.6; O2SAT 95
--- NOTE | 2016-10-20 11:47 | NUR ---
consultation was called for DR SIMONS AND SPOKE TO CARROLL [phone]
[2016-10-20] MEDS: ALBUTEROL SULFATE 0.083% 2.5 MG/3 ML VIAL.NEB INH SCH ×3 (11:50→20:54)
[2016-10-20] MEDS: IPRATROPIUM BROM 0.5 MG/2.5 ML VIAL.NEB (ATROVENT) INH SCH ×3 (11:50→20:54)
--- NOTE | 2016-10-20 12:00 | NUR ---
PATIENT BG 168. PT JUST ATE FULL SUGAR SHERBERT AND NOW REPORTS NAUSEA AGAIN. WILL HOLD INSULIN PENDING PT EATING MORE FOOD
--- NOTE | 2016-10-20 13:50 | NUR ---
[address] [place] [address] ADMIN BY ELLEN ROLLINS. PT STATED SHE WAS NAUSEATED. REASSESSED PT AT 1340 AND SHE DENIES NAUSEA, WAS ABLE TO DRINK SOME OF HER BOOST
[2016-10-20 14:44] LABS: ALBUMIN 3.1 g/dL (3.4-4.8); BILIRUBIN,DIRECT 0.2 mg/dL (0.0-0.3); TOTAL BILIRUBIN 0.5 mg/dL (0.0-1.0); TOTAL PROTEIN, SERUM 6.2 g/dL (6.4-8.3)
[2016-10-20 15:26] VITALS: BP 138/71; PULSE 80; RESP 19; TEMP 98.3; O2SAT 93
--- NOTE | 2016-10-20 16:35 | NUR ---
Wound Evaluation: Wound Consult ordered for Low Dain Score. Patient evaluated for a low Dain score of 12, now a 17. Patient was awake, alert, oriented and received in a Yadira Bed with an Atmos Air 9000 mattress. Patient is able to turn in bed. Skin is fair (-). Past medical history: Diabetes Mellitus, Obesity, Chronic Pain, Hypertension, Depression, and Bilateral Knee Replacement. Recommend encourage and assist patient as needed with repositioning every 2 hours with pillow support. Elevate, off-load and float bilateral heels with pillows. Offload pressure areas with pillows for pressure re-distribution. Perform skin care and monitor skin integrity Q shift. Use moisture barrier cream on moisture susceptible areas QID and PRN for soiling. Skin assessment: 1) Left Foot: Status post recent second and third toe surgery to repair hammertoe per patient. Surgical dressing is clean, dry and intact. Per patient and her son, the doctor who performed the surgery did not want the dressing removed. Assessed left extremity, and it was similar in color, temperature, and edema to the right extremity. No apparent infection (WBC is 8.8 today, and was 11.1 yesterday), but unable to tell without removing the dressing and assessing the wound sites. Recommend: Continue to monitor surgical site every shift. Assess wound if patient allows. Contact wound care if surgical site worsens or patient allows assessment. Will continue to follow as a Dain.
--- NOTE | 2016-10-20 17:05 | NUR ---
DR REYNOLDS IN TO SEE PATIENT. STATED HE WOULD MAKE NO CHANGES TO PATIENT'S ORDERS.
[2016-10-20] MEDS: LEVOFLOXACIN 500 MG/D5W 100 ML IV SCH (18:04)
--- NOTE | 2016-10-20 20:00 | NUR ---
ROUNDS PATIENT IN BED, NOT IN DISTRESS, VITALS STABLE. DENIES ANY PAIN AND DISCOMFORT AT THIS TIME. NEEDS ATTENDED TO. REPOSITIONED AND MADE COMFORTABLE. SAFETY AND FALL PRECAUTION MEASURES IN PLACED. BED IN LOW AND LOCKED POSITION. BED ALARM ON. CALL LIGHT PLACED WITHIN REACH.
[2016-10-20] MEDS: KETOROLAC TROMETHAMINE 30 MG VIAL IVP PRN (20:45)
[2016-10-20] MEDS: FLUoxetine HCL 20 MG CAPSULE (PROzac) PO SCH (20:48)
--- NOTE | 2016-10-20 21:15 | NUR ---
MEDICATIONS DUE MEDICATIONS GIVEN SCHEDULED, TOLERATED WELL. WILL CONTINUE TO MONITOR.
[2016-10-21] VITALS (7 sets, daily range): BP systolic 135–142; BP diastolic 64–77; PULSE 70–81; RESP 16–20; TEMP 97–98; O2SAT 90–95
--- NOTE | 2016-10-21 | NUR ---
PATIENT RESTING: Patient resting quietly. No acute distress noted. Vital signs within normal range.
--- NOTE | 2016-10-21 07:25 | NUR ---
am notes: patient lying on the bed,sleeping. report given at bedside by night nurse vidhya. no distress.
--- NOTE | 2016-10-21 07:30 | NUR ---
added notes: with feldman draining to yellow urine.
[2016-10-21] MEDS: IPRATROPIUM BROM 0.5 MG/2.5 ML VIAL.NEB (ATROVENT) INH SCH ×3 (07:42→15:52)
[2016-10-21] MEDS: ALBUTEROL SULFATE 0.083% 2.5 MG/3 ML VIAL.NEB INH SCH ×3 (07:42→15:52)
[2016-10-21] MEDS: ASPIRIN 81 MG TAB.CHEW PO SCH (09:10)
[2016-10-21] MEDS: ENALAPRIL MALEATE 10 MG TABLET (VASOTEC) PO SCH (09:11)
[2016-10-21] MEDS: HEPARIN SODIUM,PORCINE 5000 UNITS/ML VIAL SUBCUT SCH (09:12)
--- NOTE | 2016-10-21 09:27 | NUR ---
rounds: very sleepy. assisted up and due po meds given . well tolerated.
--- NOTE | 2016-10-21 09:28 | NUR ---
md rounds: patient seen by dr herr in the room. informed md that pt's daughter is requesting for physical therapist to see the pt.
--- NOTE | 2016-10-21 11:15 | NUR ---
physical therapist: patient ambulated with physical therapist assisted via fww,well tolerated slowly,o2 saturation=93%.
--- NOTE | 2016-10-21 11:40 | NUR ---
blood sugar: blood sugar taken,no insulin coverage per sliding scale.
--- NOTE | 2016-10-21 13:40 | NUR ---
acosta feldman: feldman removed as ordered.
[2016-10-21] MEDS ORDERED: LEVO500T20 PO (14:33)
--- NOTE | 2016-10-21 15:10 | NUR ---
rounds: resting. stable.daughter at bedside.
--- NOTE | 2016-10-21 16:00 | NUR ---
void: voided per [facility] post dc feldman.
--- NOTE | 2016-10-21 17:36 | NUR ---
dc notes: transitional care documents and prescriptions given to patient,verbalized understanding. personal belongings sent home with the patient. iv removed,dry gauze applied,no bleeding noted. wheeled by geophysical observer to the lobby. accompanied home by patient's son and daughter in stable condition.
--- NOTE | 2016-10-24 10:59 | NUR ---
Discharge Follow Up Phone Call [employer]ider phoned patient, , and left a voicemail message on 10/23/16. [employer] WORKER phoned patient today and spoke with patient's daughter, Meme. Meme stated that patient has been weak and tired but is feeling better every day and gaining strength. They filled patient's prescription and patient is taking her medications as directed. Patient has not been using her blood glucose monitor as directed since her return home. Meme will be sure that patient checks her sugar this morning. Patient has a follow up appointment with her PCP on 10/25/16. Patient lives alone but patient's son and daughter are staying with her while she regains her strength. They have no questions or concerns at this time. No further follow up calls needed.
== END 2016-10-21 17:36 | disposition home or self-care (01) | DRG 196 ==
LOC: SED 10:37 → SIC 12:10 → STU 10-19 11:15 → SMU 10-20 11:39
PROVIDERS: ADMIT Internal Medicine Hospice and Palliative Medicine; ATTEND Internal Medicine Hospice and Palliative Medicine
DX: J84.9 Interstitial pulmonary disease, unspecified (principal); J96.02 Acute respiratory failure with hypercapnia; G93.41 Metabolic encephalopathy; E87.2 Acidosis; Z68.41 Body mass index [BMI] 40.0-44.9, adult; I50.30 Unspecified diastolic (congestive) heart failure; E78.5 Hyperlipidemia, unspecified; F32.9 Major depressive disorder, single episode, unspecified; E66.01 Morbid (severe) obesity due to excess calories; G89.29 Other chronic pain; I11.0 Hypertensive heart disease with heart failure; G47.33 Obstructive sleep apnea (adult) (pediatric); E11.9 Type 2 diabetes mellitus without complications; T40.2X5A Adverse effect of other opioids, initial encounter; Z96.653 Presence of artificial knee joint, bilateral; Z88.8 Allergy status to other drugs, medicaments and biological substances; Z88.1 Allergy status to other antibiotic agents; Z79.84 Long term (current) use of oral hypoglycemic drugs; Z79.891 Long term (current) use of opiate analgesic; Z79.899 Other long term (current) drug therapy; Y92.009 Unspecified place in unspecified non-institutional (private) residence as the place of occurrence of the external cause
CPT/HCPCS: 36415; 36600; 71010; 76700-TC; 80048; 80053; 80076; 80307; 81003; 82803-TC; 82962; 83605; 83880; 84484; 85025; 85610-TC; 85730-TC; 87040-TC; 87081; 93005; 93306; 94640; 94760; 96374; 96375; 97110-GP; 99285; G0480; G0481; G0482; J0780; J1644; J1815; J1885; J1940; J1956; J2310; J2405; J2765; J3490; J7040; J7050

== ENCOUNTER 2017-02-13 13:40 | Emergency (ER) | payer OTHER ==
[~2017-02-13] VITALS: Ht 167.6 cm; Wt 127.0 kg
[~2017-02-13 13:40] MED LIST changes: +FURO-149 PO; -FURO10VI27 IVP; -GABA300S PO; -HYDR-1189 PO; -IBUP-1480 PO; +LEVO500T20 PO; -LEVO500T89 PO; +NEU300 PO
[2017-02-13 13:45] VITALS: BP_SYST 112
[2017-02-13] MEDS ORDERED: MORPHINE 4 MG/ML INJ. SYRINGE IVP ONE (14:00)
[2017-02-13] MEDS ORDERED: ONDANSETRON HCL 4 MG/2 ML VIAL IVP ONE (14:00)
[2017-02-13 14:18] LABS: BASOPHILS # (AUTO) 0.1 K/uL (0.0-0.2); BASOPHILS % (AUTO) 0.4 % (0.0-2.0); EOSINOPHILS % (AUTO) 0.1 % (0.0-4.0); HEMATOCRIT 39.1 % (36-48); HEMOGLOBIN 12.6 g/dL (12.0-16.0); LYMPHOCYTES % (AUTO) 7.1 % (20.5-51.5); MEAN CORPUSCULAR HEMOGLOBIN 30 pg (27-31); MEAN CORPUSCULAR HGB CONC 32 % (32-36); MEAN CORPUSCULAR VOLUME 93 fL (79.0-98.0); MONOCYTES # (AUTO) 0.9 K/uL (0.0-1.0); MONOCYTES % (AUTO) 6.4 % (1.7-9.3); NEUTROPHILS # (AUTO) 11.7 K/uL (1.8-7.7); PLATELET COUNT (AUTO) 257 K/uL (130-430); RED BLOOD CELL COUNT(AUTO) 4.23 MIL/uL (4.2-6.2); RED CELL DISTRIBUTION WIDTH 11.9 % (9.0-15.0); WHITE BLOOD COUNT (AUTO) 13.7 K/uL (4.8-10.8)
[2017-02-13 14:28] LABS: ANION GAP 9 (5-15); CALCIUM 10.2 mg/dL (8.4-11.0); CHLORIDE 104 mmol/L (98-107); CREATININE 0.98 mg/dL (0.55-1.30); GLUCOSE 130 mg/dL (70-99); POTASSIUM 3.7 mmol/L (3.5-5.1); SODIUM SERUM 141 mmol/L (136-145); UREA NITROGEN, BLOOD 22 mg/dL (8-21)
[2017-02-13 14:31] LABS: BILIRUBIN,URINE NEGATIVE (NEGATIVE); BLOOD, URINE NEGATIVE (NEGATIVE); CLARITY/URINE SL HAZY (CLEAR); COLOR,URINE YELLOW (YELLOW); GLUCOSE,URINE NEGATIVE (NEGATIVE); KETONES,URINE NEGATIVE (NEGATIVE); LEUKOCYTE ESTERASE ,URINE 1+ (NEGATIVE); NITRITE, URINE NEGATIVE (NEGATIVE); PROTEIN URINE TRACE (NEGATIVE); UROBILINOGEN,URINE 0.2 (0.2-1.0)
[2017-02-13 14:32] LABS: PROTHROMBIN TIME 10.9 SECS (9.5-12.5)
[2017-02-13 14:33] LABS: ALANINE AMINOTRANSFERASE 22 U/L (12-78); ALBUMIN 3.8 g/dL (3.4-4.8); ASPARTATE AMINOTRANSFERASE 23 U/L (10-37); TOTAL BILIRUBIN 0.4 mg/dL (0.0-1.0)
[2017-02-13 14:41] LABS: BACTERIA,URINE MODERATE /HPF (None Seen); RBC,URINE 0-3 /HPF (0-3)
[2017-02-13 14:42] LABS: MUCUS,URINE 1+ /LPF (None Seen)
[2017-02-13] MEDS ORDERED: cefTRIAXone 1 GM IVPB PREMIX 50 ML IV ONE (14:45)
[2017-02-13 15:45] VITALS: BP_SYST 122
== END 2017-02-13 15:45 | disposition short-term general hospital (02) ==
LOC: SED 13:40
DX: S06.5X9A Traumatic subdural hemorrhage with loss of consciousness of unspecified duration, initial encounter (principal); N39.0 Urinary tract infection, site not specified; R79.89 Other specified abnormal findings of blood chemistry; E11.9 Type 2 diabetes mellitus without complications; I10 Essential (primary) hypertension; E78.00 Pure hypercholesterolemia, unspecified; M54.30 Sciatica, unspecified side; Z88.1 Allergy status to other antibiotic agents; Z88.6 Allergy status to analgesic agent; W19.XXXA Unspecified fall, initial encounter; Y93.89 Activity, other specified; Y92.009 Unspecified place in unspecified non-institutional (private) residence as the place of occurrence of the external cause; Y99.8 Other external cause status
CPT/HCPCS: 36415; 70450; 71010; 74176; 80053; 81000; 84484; 85025; 85610; 85730; 87086; 93005; 96365; 96375; 99285; J0696; J2270; J2405; 87186-TC

== ENCOUNTER 2017-03-05 21:07 | Inpatient (IN) | payer OTHER ==
[~2017-03-05] VITALS: Ht 167.6 cm; Wt 126.6 kg
[2017-03-05 21:07] VITALS: BP_SYST 130
[2017-03-05] MEDS ORDERED: FURO-150 PO (21:39)
[2017-03-05] MEDS ORDERED: HYDR-1189 PO (21:39)
[2017-03-05] MEDS ORDERED: LEVE1000 PO (21:39)
[2017-03-05] MEDS ORDERED: ALBUTEROL SULFATE 0.083% 2.5 MG/3 ML VIAL.NEB IH ONE (22:00)
[2017-03-05 22:27] LABS: HEMOGLOBIN 13.4 g/dL (12.0-16.0); MEAN CORPUSCULAR HEMOGLOBIN 31 pg (27-31); MEAN CORPUSCULAR HGB CONC 33 % (32-36); MEAN CORPUSCULAR VOLUME 92 fL (79.0-98.0); PLATELET COUNT (AUTO) 264 K/uL (130-430); RED BLOOD CELL COUNT(AUTO) 4.36 MIL/uL (4.2-6.2); RED CELL DISTRIBUTION WIDTH 11.7 % (9.0-15.0); WHITE BLOOD COUNT (AUTO) 20.3 K/uL (4.8-10.8)
[2017-03-05 22:32] LABS: INR 1.2 (0.8-1.2); PROTHROMBIN TIME 13.4 SECS (9.5-12.5)
[2017-03-05 22:39] LABS: ANION GAP 15 (5-15); CALCIUM 9.4 mg/dL (8.4-11.0); CHLORIDE 101 mmol/L (98-107); CREATININE 1.03 mg/dL (0.55-1.30); GLUCOSE 146 mg/dL (70-99); SODIUM SERUM 140 mmol/L (136-145); UREA NITROGEN, BLOOD 26 mg/dL (8-21)
[2017-03-05 22:44] LABS: ALANINE AMINOTRANSFERASE 40 U/L (12-78); ASPARTATE AMINOTRANSFERASE 44 U/L (10-37); TOTAL BILIRUBIN 1.4 mg/dL (0.0-1.0)
[2017-03-05] MEDS ORDERED: FUROSEMIDE 40 MG/4 ML VIAL IVP ONE (22:45)
[2017-03-05 23:00] LABS: BAND % (MANUAL) 2 % (0-6); BASOPHILS % (MANUAL) 0 % (0-2); EOSINOPHILS % (MANUAL) 0 % (0-7); LYMPHOCYTES % (MANUAL) 7 % (20-46); MONOCYTES % (MANUAL) 12 % (0-11)
[2017-03-05] MEDS ORDERED: LEVOFLOXACIN 500 MG/D5W 100 ML IV ONE (23:30)
[2017-03-06] VITALS (8 sets, daily range): BP systolic 106–129
[2017-03-06 00:18] LABS: BILIRUBIN,URINE NEGATIVE (NEGATIVE); CLARITY/URINE CLEAR (CLEAR); COLOR,URINE YELLOW (YELLOW); GLUCOSE,URINE NEGATIVE (NEGATIVE); KETONES,URINE NEGATIVE (NEGATIVE); LEUKOCYTE ESTERASE ,URINE NEGATIVE (NEGATIVE); NITRITE, URINE NEGATIVE (NEGATIVE); PROTEIN URINE TRACE (NEGATIVE); UROBILINOGEN,URINE 0.2 (0.2-1.0)
[2017-03-06 00:20] LABS: BLOOD, URINE TRACE (NEGATIVE)
[2017-03-06 00:34] LABS: BACTERIA,URINE FEW /HPF (None Seen); HYALINE CASTS, URINE 0-10 /LPF (None Seen); MUCUS,URINE None Seen /LPF (None Seen); RBC,URINE 0-3 /HPF (0-3); URINE AMORPHOUS URATE 1+ /HPF (None Seen); WBC,URINE 0-3 /HPF (0-3)
[2017-03-06] MEDS ORDERED: HYDROcodone/ACETAMIN 5-325 MG TAB (NORCO/ VICODIN) PO PRN ×2 (01:30→15:30)
[2017-03-06] MEDS ORDERED: INSULIN REGULAR, HUMAN 100 UNITS/ML, 10 ML VIAL (novoLIN R) SUBCUT PRN ×2 (01:30→08:30)
[2017-03-06] MEDS: ALBUTEROL SULFATE 0.083% 2.5 MG/3 ML VIAL.NEB INH SCH ×3 (05:39→19:55)
[2017-03-06] MEDS ORDERED: ALBUTEROL SULFATE 0.083% 2.5 MG/3 ML VIAL.NEB INH PRN (08:30)
[2017-03-06] MEDS ORDERED: GLUCOSE 15 GM GEL (in 37.5 GM TUBE) PO PRN ×2 (08:45)
[2017-03-06] MEDS ORDERED: DEXTROSE 50%-WATER 50 ML DISP.SYRIN IVP PRN ×2 (08:45)
[2017-03-06] MEDS ORDERED: FUROSEMIDE 20 MG TABLET PO SCH (09:00)
[2017-03-06] MEDS ORDERED: FLUoxetine HCL 20 MG CAPSULE (PROzac) PO SCH (09:00)
[2017-03-06] MEDS: GABAPENTIN 300 MG CAPSULE PO SCH ×3 (09:24→21:04)
[2017-03-06] MEDS: levETIRAcetam 500 MG TABLET PO SCH ×2 (09:25→21:03)
[2017-03-06] MEDS ORDERED: FUROSEMIDE 20 MG/2 ML VIAL IVP ONE (11:45)
[2017-03-06] MEDS ORDERED: LEVOFLOXACIN 500 MG/D5W 100 ML IV SCH (21:00)
[2017-03-06] MEDS ORDERED: ZOLPIDEM TARTRATE 5 MG TABLET PO SCH (21:00)
[2017-03-06] MEDS ORDERED: SIMVASTATIN 40 MG TABLET PO SCH (21:00)
[2017-03-06] MEDS ORDERED: metFORMIN HCL 500 MG TABLET PO SCH (21:00)
[2017-03-07] MEDS ORDERED: FUROSEMIDE 20 MG/2 ML VIAL IVP SCH (09:00)
== END 2017-03-06 23:50 | disposition short-term general hospital (02) | DRG 291 ==
LOC: SED 21:07 → STU 03-06 01:22
DX: I11.0 Hypertensive heart disease with heart failure (principal); J96.01 Acute respiratory failure with hypoxia; I50.9 Heart failure, unspecified; J44.9 Chronic obstructive pulmonary disease, unspecified; E11.9 Type 2 diabetes mellitus without complications; E03.9 Hypothyroidism, unspecified; E78.5 Hyperlipidemia, unspecified; Z87.891 Personal history of nicotine dependence; Z90.710 Acquired absence of both cervix and uterus; Z90.49 Acquired absence of other specified parts of digestive tract; Z88.1 Allergy status to other antibiotic agents; Z88.8 Allergy status to other drugs, medicaments and biological substances; Z79.899 Other long term (current) drug therapy; I50.33 Acute on chronic diastolic (congestive) heart failure
CPT/HCPCS: 36415; 36600; 70450-TC; 71010; 71250-TC; 76705; 80053; 81000-TC; 82803-TC; 82962; 83605; 83880; 84484; 85007; 85027; 85610-TC; 85730-TC; 87040-TC; 87081; 87230-TC; 93005; 93306; 93970; 94640; 94760; 96365; 96375; 99285; J1815; J1940; J1956

== ENCOUNTER 2017-04-30 16:06 | Inpatient (IN) | payer OTHER ==
[~2017-04-30] VITALS: Ht 167.6 cm; Wt 127.0 kg
[~2017-04-30 16:06] MED LIST changes: -ALEN70TA27 PO; +AMI200 PO; -ASPI-1077 PO; -ENAL20TA PO; -FLUO-119 PO; +FLUT1DIS3 INH; +GABA-531 PO; +GLUXR500 PO; +HYDR-3610 PO; +LEVE1000 PO; -LEVO500T20 PO; -MECL-123 PO; +MECL12.584 PO; -METF-303 PO; -NEU300 PO; +ONDA4TAB5 PO; +PRO20 PO; +SIMV20TA2 PO; -SIMV80TA74 PO
[2017-04-30 16:11] VITALS: BP_SYST 121
[2017-04-30 17:45] LABS: BASOPHILS % (AUTO) 0.5 % (0.0-2.0); HEMATOCRIT 35.4 % (36-48); HEMOGLOBIN 11.7 g/dL (12.0-16.0); LYMPHOCYTES # (AUTO) 0.8 K/uL (1.0-5.5); LYMPHOCYTES % (AUTO) 8.9 % (20.5-51.5); MEAN CORPUSCULAR HEMOGLOBIN 31 pg (27-31); MEAN CORPUSCULAR HGB CONC 33 % (32-36); MEAN CORPUSCULAR VOLUME 93 fL (79.0-98.0); MONOCYTES # (AUTO) 0.4 K/uL (0.0-1.0); MONOCYTES % (AUTO) 3.7 % (1.7-9.3); NEUTROPHILS # (AUTO) 8.3 K/uL (1.8-7.7); NEUTROPHILS % (AUTO) 86.9 % (40.0-70.0); PLATELET COUNT (AUTO) 316 K/uL (130-430); RED BLOOD CELL COUNT(AUTO) 3.82 MIL/uL (4.2-6.2); RED CELL DISTRIBUTION WIDTH 13.9 % (9.0-15.0); WHITE BLOOD COUNT (AUTO) 9.5 K/uL (4.8-10.8)
[2017-04-30 18:00] LABS: ANION GAP 4 (5-15); CALCIUM 8.8 mg/dL (8.4-11.0); CHLORIDE 101 mmol/L (98-107); CREATININE 0.97 mg/dL (0.55-1.30); GLUCOSE 140 mg/dL (70-99); POTASSIUM 4.5 mmol/L (3.5-5.1); SODIUM SERUM 136 mmol/L (136-145); UREA NITROGEN, BLOOD 14 mg/dL (8-21)
[2017-04-30 18:05] LABS: ALANINE AMINOTRANSFERASE 19 U/L (12-78); ALBUMIN 3.5 g/dL (3.4-4.8); ASPARTATE AMINOTRANSFERASE 14 U/L (10-37); PROTHROMBIN TIME 10.6 SECS (9.5-12.5); TOTAL BILIRUBIN 0.4 mg/dL (0.0-1.0)
[2017-04-30] MEDS ORDERED: methylPREDNISolone SOD SUCC/PF 62.5 MG/ML VIAL IVP ONE (18:45)
[2017-04-30] MEDS ORDERED: ENALAPRILAT DIHYDRATE 1.25 MG/ML VIAL IVP ONE (18:45)
[2017-04-30] MEDS ORDERED: FUROSEMIDE 40 MG/4 ML VIAL IVP ONE (18:45)
[2017-04-30] MEDS ORDERED: IOHEXOL 350 mgI/mL, 150 ML INFUS..BTL IV ONE (18:53)
[2017-04-30] MEDS ORDERED: ENALAPRILAT DIHYDRATE 1.25 MG/ML VIAL ONE (18:58)
[2017-04-30] MEDS ORDERED: FUROSEMIDE 40 MG/4 ML VIAL ONE (18:59)
[2017-04-30] MEDS ORDERED: methylPREDNISolone SOD SUCC/PF 62.5 MG/ML VIAL ONE (18:59)
[2017-04-30 21:27] VITALS: BP_SYST 117
[2017-04-30 21:32] VITALS: BP_SYST 117
[2017-04-30] MEDS ORDERED: HEPARIN SODIUM,PORCINE 2000 UNITS/0.4 ML BOLUS IVP PRN (22:00)
[2017-04-30] MEDS ORDERED: HEPARIN SODIUM,PORCINE 3000 UNITS/0.6 ML BOLUS IVP PRN (22:00)
[2017-04-30] MEDS ORDERED: HEPARIN SODIUM,PORCINE 5000 UNITS/ML VIAL IVP ONE (22:30)
[2017-04-30] MEDS: HEPARIN 25,000 UNITS in 250 ML PREMIX IV PRN (22:55)
[2017-04-30 23:00] VITALS: BP_SYST 125
[2017-04-30] MEDS ORDERED: ALBUTEROL SULFATE 0.083% 2.5 MG/3 ML VIAL.NEB INH PRN (23:15)
[2017-04-30] MEDS ORDERED: IPRATROPIUM BROM 0.5 MG/2.5 ML VIAL.NEB (ATROVENT) INH PRN (23:15)
[2017-05-01] VITALS (20 sets, daily range): BP systolic 98–127
[2017-05-01] MEDS: AMIODARONE HCL 200 MG TABLET PO SCH (08:33)
[2017-05-01] MEDS ORDERED: ACETAMINOPHEN 650 MG/20.3 ML UDC PO PRN (09:30)
[2017-05-01] MEDS: FUROSEMIDE 20 MG/2 ML VIAL IVP SCH (10:35)
[2017-05-01] MEDS: FLUoxetine HCL 20 MG CAPSULE (PROzac) PO SCH (10:35)
[2017-05-01] MEDS: KETOROLAC TROMETHAMINE 15 MG VIAL IVP PRN (10:38)
[2017-05-01] MEDS: HEPARIN 25,000 UNITS in 250 ML PREMIX IV PRN (16:25)
[2017-05-01] MEDS: HYDROcodone/ACETAMIN 5-325 MG TAB (NORCO/ VICODIN) PO PRN (19:55)
[2017-05-01] MEDS ORDERED: *HEPARIN PER PHARMACY XX PRN (21:00)
[2017-05-02] VITALS: BP_SYST 124
[2017-05-02] MEDS: HYDROcodone/ACETAMIN 5-325 MG TAB (NORCO/ VICODIN) PO PRN ×4 (02:40→21:55)
[2017-05-02 04:32] VITALS: BP_SYST 119
[2017-05-02] MEDS: KETOROLAC TROMETHAMINE 15 MG VIAL IVP PRN (05:54)
[2017-05-02 06:32] LABS: BASOPHILS # (AUTO) 0.1 K/uL (0.0-0.2); BASOPHILS % (AUTO) 0.7 % (0.0-2.0); EOSINOPHILS # (AUTO) 0.1 K/uL (0.0-0.4); EOSINOPHILS % (AUTO) 0.8 % (0.0-4.0); HEMATOCRIT 31.4 % (36-48); HEMOGLOBIN 10.4 g/dL (12.0-16.0); LYMPHOCYTES # (AUTO) 2.7 K/uL (1.0-5.5); LYMPHOCYTES % (AUTO) 34.2 % (20.5-51.5); MEAN CORPUSCULAR HEMOGLOBIN 31 pg (27-31); MEAN CORPUSCULAR HGB CONC 33 % (32-36); MEAN CORPUSCULAR VOLUME 92 fL (79.0-98.0); MONOCYTES # (AUTO) 0.9 K/uL (0.0-1.0); MONOCYTES % (AUTO) 10.8 % (1.7-9.3); NEUTROPHILS # (AUTO) 4.2 K/uL (1.8-7.7); NEUTROPHILS % (AUTO) 53.5 % (40.0-70.0); PLATELET COUNT (AUTO) 277 K/uL (130-430); RED BLOOD CELL COUNT(AUTO) 3.41 MIL/uL (4.2-6.2); RED CELL DISTRIBUTION WIDTH 14.6 % (9.0-15.0)
[2017-05-02] MEDS: HEPARIN 25,000 UNITS in 250 ML PREMIX IV PRN ×2 (07:04→20:10)
[2017-05-02 07:21] LABS: ANION GAP 5 (5-15); CALCIUM 8.8 mg/dL (8.4-11.0); CHLORIDE 96 mmol/L (98-107); CREATININE 0.99 mg/dL (0.55-1.30); GLUCOSE 109 mg/dL (70-99); POTASSIUM 3.9 mmol/L (3.5-5.1); SODIUM SERUM 134 mmol/L (136-145); UREA NITROGEN, BLOOD 20 mg/dL (8-21)
[2017-05-02 08:00] VITALS: BP_SYST 135
[2017-05-02] MEDS: AMIODARONE HCL 200 MG TABLET PO SCH (08:47)
[2017-05-02] MEDS: FLUoxetine HCL 20 MG CAPSULE (PROzac) PO SCH (08:49)
[2017-05-02] MEDS: FUROSEMIDE 20 MG/2 ML VIAL IVP SCH (08:49)
[2017-05-02 11:42] VITALS: BP_SYST 111
[2017-05-02 16:35] VITALS: BP_SYST 109
[2017-05-02 20:00] VITALS: BP_SYST 114
[2017-05-03 00:39] VITALS: BP_SYST 141
[2017-05-03] MEDS ORDERED: ZOLPIDEM TARTRATE 5 MG TABLET PO ONE ×2 (01:00→21:00)
[2017-05-03 04:58] VITALS: BP_SYST 129
[2017-05-03 06:10] LABS: BASOPHILS # (AUTO) 0.1 K/uL (0.0-0.2); BASOPHILS % (AUTO) 0.7 % (0.0-2.0); EOSINOPHILS # (AUTO) 0.2 K/uL (0.0-0.4); HEMATOCRIT 33.7 % (36-48); HEMOGLOBIN 11.3 g/dL (12.0-16.0); LYMPHOCYTES # (AUTO) 2.2 K/uL (1.0-5.5); LYMPHOCYTES % (AUTO) 28.3 % (20.5-51.5); MEAN CORPUSCULAR HEMOGLOBIN 31 pg (27-31); MEAN CORPUSCULAR HGB CONC 34 % (32-36); MEAN CORPUSCULAR VOLUME 93 fL (79.0-98.0); MONOCYTES # (AUTO) 0.9 K/uL (0.0-1.0); NEUTROPHILS # (AUTO) 4.4 K/uL (1.8-7.7); PLATELET COUNT (AUTO) 289 K/uL (130-430); RED BLOOD CELL COUNT(AUTO) 3.63 MIL/uL (4.2-6.2); RED CELL DISTRIBUTION WIDTH 14.1 % (9.0-15.0); WHITE BLOOD COUNT (AUTO) 7.8 K/uL (4.8-10.8)
[2017-05-03 06:33] LABS: ANION GAP 7 (5-15); CALCIUM 8.4 mg/dL (8.4-11.0); CHLORIDE 98 mmol/L (98-107); GLUCOSE 107 mg/dL (70-99); POTASSIUM 3.5 mmol/L (3.5-5.1); SODIUM SERUM 136 mmol/L (136-145); UREA NITROGEN, BLOOD 14 mg/dL (8-21)
[2017-05-03 08:40] VITALS: BP_SYST 148
[2017-05-03] MEDS: AMIODARONE HCL 200 MG TABLET PO SCH (09:33)
[2017-05-03] MEDS: FLUoxetine HCL 20 MG CAPSULE (PROzac) PO SCH (09:34)
[2017-05-03] MEDS: FUROSEMIDE 20 MG/2 ML VIAL IVP SCH (09:35)
[2017-05-03] MEDS: HEPARIN 25,000 UNITS in 250 ML PREMIX IV PRN (10:13)
[2017-05-03] MEDS ORDERED: ONDANSETRON HCL 4 MG/2 ML VIAL IVP PRN (11:45)
[2017-05-03 12:14] LABS: BASOPHILS % (AUTO) 0.6 % (0.0-2.0); EOSINOPHILS # (AUTO) 0.2 K/uL (0.0-0.4); EOSINOPHILS % (AUTO) 2.4 % (0.0-4.0); HEMATOCRIT 38.7 % (36-48); HEMOGLOBIN 12.8 g/dL (12.0-16.0); LYMPHOCYTES # (AUTO) 1.1 K/uL (1.0-5.5); LYMPHOCYTES % (AUTO) 13.3 % (20.5-51.5); MEAN CORPUSCULAR HEMOGLOBIN 30 pg (27-31); MEAN CORPUSCULAR HGB CONC 33 % (32-36); MEAN CORPUSCULAR VOLUME 91 fL (79.0-98.0); MONOCYTES # (AUTO) 0.9 K/uL (0.0-1.0); MONOCYTES % (AUTO) 10.4 % (1.7-9.3); NEUTROPHILS # (AUTO) 6.1 K/uL (1.8-7.7); NEUTROPHILS % (AUTO) 73.3 % (40.0-70.0); PLATELET COUNT (AUTO) 337 K/uL (130-430); RED BLOOD CELL COUNT(AUTO) 4.24 MIL/uL (4.2-6.2); RED CELL DISTRIBUTION WIDTH 14.1 % (9.0-15.0); WHITE BLOOD COUNT (AUTO) 8.3 K/uL (4.8-10.8)
[2017-05-03 12:24] VITALS: BP_SYST 136
[2017-05-03 12:27] LABS: INR 1.1 (0.8-1.2); PROTHROMBIN TIME 11.2 SECS (9.5-12.5)
[2017-05-03] MEDS: HYDROcodone/ACETAMIN 5-325 MG TAB (NORCO/ VICODIN) PO PRN ×2 (13:32→23:57)
[2017-05-03 16:35] VITALS: BP_SYST 141
[2017-05-03 20:00] VITALS: BP_SYST 135
[2017-05-04 00:21] VITALS: BP_SYST 131
[2017-05-04 05:00] VITALS: BP_SYST 131
[2017-05-04 07:58] VITALS: BP_SYST 124
[2017-05-04] MEDS: AMIODARONE HCL 200 MG TABLET PO SCH (09:15)
[2017-05-04] MEDS: FLUoxetine HCL 20 MG CAPSULE (PROzac) PO SCH (09:15)
[2017-05-04] MEDS: FUROSEMIDE 20 MG/2 ML VIAL IVP SCH (09:16)
[2017-05-04 12:00] VITALS: BP_SYST 125
[2017-05-04] MEDS: HYDROcodone/ACETAMIN 5-325 MG TAB (NORCO/ VICODIN) PO PRN (14:26)
[2017-05-04 16:00] VITALS: BP_SYST 134
[2017-05-04 18:49] VITALS: BP_SYST 134
== END 2017-05-04 20:10 | disposition home or self-care (01) | DRG 175 ==
LOC: SED 16:06 → SIC 20:47 → STU 05-01 18:47
PROVIDERS: ADMIT Internal Medicine Hospice and Palliative Medicine; ATTEND Internal Medicine Hospice and Palliative Medicine
PROC: 5A09357 Assistance with Respiratory Ventilation, Less than 24 Consecutive Hours, Continuous Positive Airway Pressure (ICD-10-PCS; principal; 2017-05-01)
DX: I26.99 Other pulmonary embolism without acute cor pulmonale (principal); G93.41 Metabolic encephalopathy; J96.20 Acute and chronic respiratory failure, unspecified whether with hypoxia or hypercapnia; I50.32 Chronic diastolic (congestive) heart failure; Z68.42 Body mass index [BMI] 45.0-49.9, adult; I11.0 Hypertensive heart disease with heart failure; Z99.81 Dependence on supplemental oxygen; E03.9 Hypothyroidism, unspecified; E11.9 Type 2 diabetes mellitus without complications; E66.9 Obesity, unspecified; E78.5 Hyperlipidemia, unspecified; F32.9 Major depressive disorder, single episode, unspecified; G47.33 Obstructive sleep apnea (adult) (pediatric); G89.29 Other chronic pain; M54.9 Dorsalgia, unspecified; J44.9 Chronic obstructive pulmonary disease, unspecified; R29.6 Repeated falls; Z86.718 Personal history of other venous thrombosis and embolism; Z87.820 Personal history of traumatic brain injury; Z90.49 Acquired absence of other specified parts of digestive tract; Z91.81 History of falling; Z86.711 Personal history of pulmonary embolism; Z88.1 Allergy status to other antibiotic agents; Z88.8 Allergy status to other drugs, medicaments and biological substances
CPT/HCPCS: 36415; 36600; 71010; 71275; 80048; 80053; 82803-TC; 83605; 83880; 84484; 85025; 85610-TC; 85730-TC; 87040-TC; 87081; 93005; 93978; 94640; 94660; 94760; 96374; 97110-GP; 97116-GP; 97530-GP; 99285; J1644; J1885; J1940; J2405; J2930; J7050; Q9967

== ENCOUNTER 2017-05-08 20:28 | Emergency (ER) | payer OTHER ==
[~2017-05-08] VITALS: Ht 167.6 cm; Wt 140.6 kg
[~2017-05-08 20:28] MED LIST changes: -HYDR-3610 PO; -LEVE1000 PO
[2017-05-08 20:38] VITALS: BP_SYST 119
--- NOTE | 2017-05-08 20:46 | NUR ---
Placed in room 03 . Placed on cloth hand, blood pressure machine and pulse oximeter. To gown for exam. Side rails up. Report given to ELLEN Parks.
--- NOTE | 2017-05-08 20:48 | NUR ---
Patient AAOx4, wheelchair bound. Patient states having bleeding from an injection site near the umbilical area due to takng prescrived Lovenox; patient denies pain. 2 injection sites to skin noted to left side of umbilical area, slight bleeding noted to site. Active bleeding controlled with gauze and tape. Old gauze replaced with new dry gauze. Patient denies any other complaints.
--- NOTE | 2017-05-08 20:50 | NUR ---
ER Dr. Leroy at bedside examining patient.
--- NOTE | 2017-05-08 21:02 | NUR ---
# 20 gauge angiocath placed to left AC. Use of asceptic technique. Blood return noted. Blood for lab drawn from site. Flushed with 10 cc of normal saline. No evidence of infiltration noted. Patient tolerated well.
[2017-05-08 21:17] LABS: BASOPHILS # (AUTO) 0.1 K/uL (0.0-0.2); BASOPHILS % (AUTO) 0.7 % (0.0-2.0); EOSINOPHILS # (AUTO) 0.4 K/uL (0.0-0.4); EOSINOPHILS % (AUTO) 4.6 % (0.0-4.0); HEMATOCRIT 37.3 % (36-48); HEMOGLOBIN 12.5 g/dL (12.0-16.0); LYMPHOCYTES # (AUTO) 2.3 K/uL (1.0-5.5); LYMPHOCYTES % (AUTO) 24.9 % (20.5-51.5); MEAN CORPUSCULAR HEMOGLOBIN 31 pg (27-31); MEAN CORPUSCULAR HGB CONC 33 % (32-36); MEAN CORPUSCULAR VOLUME 92 fL (79.0-98.0); MONOCYTES % (AUTO) 11.1 % (1.7-9.3); NEUTROPHILS # (AUTO) 5.4 K/uL (1.8-7.7); NEUTROPHILS % (AUTO) 58.7 % (40.0-70.0); PLATELET COUNT (AUTO) 282 K/uL (130-430); RED BLOOD CELL COUNT(AUTO) 4.06 MIL/uL (4.2-6.2); RED CELL DISTRIBUTION WIDTH 14.3 % (9.0-15.0); WHITE BLOOD COUNT (AUTO) 9.2 K/uL (4.8-10.8)
[2017-05-08 21:41] LABS: ANION GAP 6 (5-15); CALCIUM 9.6 mg/dL (8.4-11.0); CHLORIDE 101 mmol/L (98-107); CREATININE 0.96 mg/dL (0.55-1.30); GLUCOSE 131 mg/dL (70-99); POTASSIUM 3.9 mmol/L (3.5-5.1); SODIUM SERUM 137 mmol/L (136-145); UREA NITROGEN, BLOOD 16 mg/dL (8-21)
[2017-05-08 21:42] LABS: PROTHROMBIN TIME 10.5 SECS (9.5-12.5)
[2017-05-08 21:45] LABS: ALANINE AMINOTRANSFERASE 20 U/L (12-78); ALBUMIN 3.6 g/dL (3.4-4.8); ASPARTATE AMINOTRANSFERASE 12 U/L (10-37); TOTAL BILIRUBIN 0.4 mg/dL (0.0-1.0)
[2017-05-08 22:20] VITALS: BP_SYST 122
--- NOTE | 2017-05-08 22:20 | NUR ---
Patient given written and verbal discharge instructions and verbalizes understanding. ER MD discussed with patient the results and treatment provided. Patient in stable condition. ID arm band removed. IV catheter removed intact and dressing applied, no active bleeding. Patient educated on pain management and to follow up with PMD. Pain Scale 0/10. Opportunity for questions provided and answered.
== END 2017-05-08 22:20 | disposition home or self-care (01) ==
LOC: SED 20:28
DX: R58 Hemorrhage, not elsewhere classified (principal); T45.515A Adverse effect of anticoagulants, initial encounter; E11.9 Type 2 diabetes mellitus without complications; I10 Essential (primary) hypertension; E78.00 Pure hypercholesterolemia, unspecified; M54.30 Sciatica, unspecified side; Z86.718 Personal history of other venous thrombosis and embolism; Z90.89 Acquired absence of other organs; Z90.710 Acquired absence of both cervix and uterus; Z96.653 Presence of artificial knee joint, bilateral; Z88.1 Allergy status to other antibiotic agents; Z88.8 Allergy status to other drugs, medicaments and biological substances; Y92.89 Other specified places as the place of occurrence of the external cause
CPT/HCPCS: 36415; 80053; 85025; 85610-TC; 85730-TC; 99284

== ENCOUNTER 2017-12-17 10:28 | Inpatient (IN) | payer OTHER ==
[~2017-12-17] VITALS: Ht 167.6 cm; Wt 131.5 kg
[2017-12-17] VITALS (11 sets, daily range): BP systolic 94–169
[2017-12-17 11:15] LABS: BASOPHILS # (AUTO) 0.1 K/uL (0.0-0.2); BASOPHILS % (AUTO) 0.6 % (0.0-2.0); EOSINOPHILS % (AUTO) 0.1 % (0.0-4.0); HEMATOCRIT 41.8 % (36-48); HEMOGLOBIN 13.5 g/dL (12.0-16.0); LYMPHOCYTES # (AUTO) 0.5 K/uL (1.0-5.5); LYMPHOCYTES % (AUTO) 3.9 % (20.5-51.5); MEAN CORPUSCULAR HEMOGLOBIN 30 pg (27-31); MEAN CORPUSCULAR HGB CONC 32 % (32-36); MEAN CORPUSCULAR VOLUME 93 fL (79.0-98.0); MONOCYTES % (AUTO) 7.6 % (1.7-9.3); NEUTROPHILS # (AUTO) 11.7 K/uL (1.8-7.7); NEUTROPHILS % (AUTO) 87.8 % (40.0-70.0); PLATELET COUNT (AUTO) 225 K/uL (130-430); RED BLOOD CELL COUNT(AUTO) 4.48 MIL/uL (4.2-6.2); RED CELL DISTRIBUTION WIDTH 13.8 % (9.0-15.0); WHITE BLOOD COUNT (AUTO) 13.3 K/uL (4.8-10.8)
[2017-12-17 11:23] LABS: ANION GAP 5 (5-15); CHLORIDE 103 mmol/L (98-107); CREATININE 1.56 mg/dL (0.55-1.30); GLUCOSE 147 mg/dL (70-99); POTASSIUM 4.7 mmol/L (3.5-5.1); SODIUM SERUM 141 mmol/L (136-145); UREA NITROGEN, BLOOD 22 mg/dL (8-21)
[2017-12-17 11:28] LABS: ALANINE AMINOTRANSFERASE 36 U/L (12-78); ALBUMIN 3.7 g/dL (3.4-4.8); ASPARTATE AMINOTRANSFERASE 35 U/L (10-37); TOTAL BILIRUBIN 0.4 mg/dL (0.0-1.0)
[2017-12-17 11:40] LABS: PROTHROMBIN TIME 10.1 SECS (9.5-12.5)
[2017-12-17] MEDS ORDERED: TRAZ-126 PO (11:48)
[2017-12-17] MEDS ORDERED: MELA3TAB37 PO (11:48)
[2017-12-17] MEDS ORDERED: IPRA0.2S6 INH (11:48)
[2017-12-17] MEDS ORDERED: HYDR-3924 PO (11:48)
[2017-12-17] MEDS ORDERED: BECL8.7A5 INH (11:48)
[2017-12-17] MEDS ORDERED: TOLT1TAB PO (11:48)
[2017-12-17 12:31] LABS: BILIRUBIN,URINE NEGATIVE (NEGATIVE); BLOOD, URINE NEGATIVE (NEGATIVE); CLARITY/URINE CLEAR (CLEAR); COLOR,URINE YELLOW (YELLOW); GLUCOSE,URINE NEGATIVE (NEGATIVE); KETONES,URINE NEGATIVE (NEGATIVE); LEUKOCYTE ESTERASE ,URINE NEGATIVE (NEGATIVE); NITRITE, URINE NEGATIVE (NEGATIVE); PH,URINE 5.5 (5.0-8.0); PROTEIN URINE TRACE (NEGATIVE); UROBILINOGEN,URINE 0.2 (0.2-1.0)
[2017-12-17 12:44] LABS: RBC,URINE 0-3 /HPF (0-3)
[2017-12-17 12:45] LABS: BACTERIA,URINE FEW /HPF (None Seen); WBC,URINE NONE SEEN /HPF (0-3)
[2017-12-17] MEDS ORDERED: IPRATROPIUM/ALBUTEROL SULFATE 3 ML AMPUL.NEB INH ONE (13:00)
[2017-12-17] MEDS ORDERED: NACL 0.9% 1,000 ML IV ONE (13:15)
[2017-12-17] MEDS ORDERED: ONDANSETRON HCL 4 MG/2 ML VIAL IVP ONE (13:30)
[2017-12-17] MEDS ORDERED: ONDANSETRON HCL 4 MG/2 ML VIAL ONE (13:32)
[2017-12-17] MEDS ORDERED: IPRATROPIUM BROM 0.5 MG/2.5 ML VIAL.NEB (ATROVENT) INH PRN (14:15)
[2017-12-17] MEDS ORDERED: DEXTROSE 50% JECT 50 ML DISP.SYRIN IVP PRN (14:15)
[2017-12-17] MEDS ORDERED: ALBUTEROL SULFATE 0.083% 2.5 MG/3 ML VIAL.NEB INH PRN (14:15)
[2017-12-17] MEDS ORDERED: NALOXONE HCL 0.4 MG/ML AMP (NARCAN) ONE (14:17)
[2017-12-17] MEDS ORDERED: methylPREDNISolone SOD SUCC/PF 62.5 MG/ML VIAL IVP ONE (14:30)
[2017-12-17] MEDS ORDERED: AMIODARONE HCL 200 MG TABLET PO SCH (14:30)
[2017-12-17] MEDS ORDERED: NOREPINEPHRINE BITARTRATE 4 MG in NS 246 ML IV PRN (15:45)
[2017-12-17] MEDS ORDERED: NOREPINEPHRINE 4 MG/4 ML VIAL IV ONE (15:49)
[2017-12-17] MEDS: FUROSEMIDE 40 MG TABLET PO SCH (16:08)
[2017-12-17] MEDS: FLUoxetine HCL 20 MG CAPSULE (PROzac) PO SCH (16:08)
[2017-12-17] MEDS: ALBUTEROL SULFATE 0.083% 2.5 MG/3 ML VIAL.NEB INH SCH (19:43)
[2017-12-17] MEDS: IPRATROPIUM BROM 0.5 MG/2.5 ML VIAL.NEB (ATROVENT) INH SCH (19:43)
[2017-12-17 19:50] LABS: BENZODIAZEPINE, URINE POSITIVE (NEG <=150); OPIATE, URINE POSITIVE (NEG <=100)
[2017-12-17 19:51] LABS: BARBITURATE, URINE NEGATIVE (NEG <=200); CANNABINOID, URINE NEGATIVE (NEG <=50); COCAINE, URINE NEGATIVE (NEG <=150); METHAMPHETAMINES SCREEN,URINE NEGATIVE (NEG <=500); PHENCYCLIDINE SCREEN,URINE NEGATIVE (NEG <=25); URINE AMPHETAMINE NEGATIVE (NEG <=500); URINE METHADONE NEGATIVE (NEG <=200); URINE OXYCODONE SCREEN NEGATIVE (NEG <=100); URINE PROPOXYPHENE SCREEN NEGATIVE (NEG <=300)
[2017-12-17] MEDS: traZODone HCL 50 MG TABLET (DESYREL) PO SCH (20:53)
[2017-12-17] MEDS: CEFEPIME 1 GM in D5W 50 ML IV SCH (20:53)
[2017-12-17] MEDS: methylPREDNISolone SOD SUCC/PF 62.5 MG/ML VIAL IVP SCH (22:08)
[2017-12-18] VITALS (21 sets, daily range): BP systolic 97–163
[2017-12-18] MEDS: INSULIN REGULAR, HUMAN 100 UNITS/ML, 10 ML VIAL (novoLIN R) SUBCUT PRN ×3 (00:23→18:26)
[2017-12-18] MEDS: ALBUTEROL SULFATE 0.083% 2.5 MG/3 ML VIAL.NEB INH SCH ×4 (00:50→19:40)
[2017-12-18] MEDS: IPRATROPIUM BROM 0.5 MG/2.5 ML VIAL.NEB (ATROVENT) INH SCH ×4 (00:50→19:40)
[2017-12-18] MEDS: methylPREDNISolone SOD SUCC/PF 62.5 MG/ML VIAL IVP SCH ×3 (06:19→22:01)
[2017-12-18] MEDS: AMIODARONE HCL 200 MG TABLET PO SCH (09:07)
[2017-12-18] MEDS: FUROSEMIDE 40 MG TABLET PO SCH (09:07)
[2017-12-18] MEDS: FLUoxetine HCL 20 MG CAPSULE (PROzac) PO SCH (09:07)
[2017-12-18] MEDS: CEFEPIME 1 GM in D5W 50 ML IV SCH ×2 (09:08→22:04)
[2017-12-18] MEDS: ACETAMINOPHEN 325 MG TABLET PO PRN (14:21)
[2017-12-18] MEDS: HYDROcodone/ACETAMIN 5-325 MG TAB (NORCO/ VICODIN) PO PRN (16:53)
[2017-12-18] MEDS: SIMVASTATIN 20 MG TABLET PO SCH (21:00)
[2017-12-18] MEDS ORDERED: traZODone HCL 50 MG TABLET (DESYREL) PO ONE (21:00)
[2017-12-18] MEDS: traZODone HCL 50 MG TABLET (DESYREL) PO SCH (21:00)
[2017-12-19] VITALS (24 sets, daily range): BP systolic 115–147
[2017-12-19] MEDS: ALBUTEROL SULFATE 0.083% 2.5 MG/3 ML VIAL.NEB INH SCH ×4 (01:00→19:49)
[2017-12-19] MEDS: IPRATROPIUM BROM 0.5 MG/2.5 ML VIAL.NEB (ATROVENT) INH SCH ×4 (01:00→19:49)
[2017-12-19] MEDS: INSULIN REGULAR, HUMAN 100 UNITS/ML, 10 ML VIAL (novoLIN R) SUBCUT PRN ×3 (01:14→11:37)
[2017-12-19] MEDS: methylPREDNISolone SOD SUCC/PF 62.5 MG/ML VIAL IVP SCH (06:39)
[2017-12-19] MEDS: CEFEPIME 1 GM in D5W 50 ML IV SCH ×2 (08:30→21:47)
[2017-12-19] MEDS: FUROSEMIDE 40 MG TABLET PO SCH (08:31)
[2017-12-19] MEDS: AMIODARONE HCL 200 MG TABLET PO SCH (08:32)
[2017-12-19] MEDS: FLUoxetine HCL 20 MG CAPSULE (PROzac) PO SCH (08:32)
[2017-12-19] MEDS: HYDROcodone/ACETAMIN 5-325 MG TAB (NORCO/ VICODIN) PO PRN (09:55)
[2017-12-19 10:39] LABS: BASOPHILS % (AUTO) 0.3 % (0.0-2.0); HEMATOCRIT 39.7 % (36-48); HEMOGLOBIN 13.2 g/dL (12.0-16.0); LYMPHOCYTES # (AUTO) 0.4 K/uL (1.0-5.5); MEAN CORPUSCULAR HEMOGLOBIN 31 pg (27-31); MEAN CORPUSCULAR HGB CONC 33 % (32-36); MEAN CORPUSCULAR VOLUME 92 fL (79.0-98.0); MONOCYTES # (AUTO) 0.3 K/uL (0.0-1.0); MONOCYTES % (AUTO) 3.9 % (1.7-9.3); NEUTROPHILS # (AUTO) 6.5 K/uL (1.8-7.7); NEUTROPHILS % (AUTO) 90.8 % (40.0-70.0); PLATELET COUNT (AUTO) 219 K/uL (130-430); RED CELL DISTRIBUTION WIDTH 13.6 % (9.0-15.0); WHITE BLOOD COUNT (AUTO) 7.2 K/uL (4.8-10.8)
[2017-12-19 11:03] LABS: ALANINE AMINOTRANSFERASE 37 U/L (12-78); ANION GAP 8 (5-15); ASPARTATE AMINOTRANSFERASE 32 U/L (10-37); CALCIUM 8.9 mg/dL (8.4-11.0); CHLORIDE 98 mmol/L (98-107); CREATININE 1.24 mg/dL (0.55-1.30); GLUCOSE 228 mg/dL (70-99); SODIUM SERUM 134 mmol/L (136-145); TOTAL BILIRUBIN 0.5 mg/dL (0.0-1.0); UREA NITROGEN, BLOOD 22 mg/dL (8-21)
[2017-12-19] MEDS: ACETAMINOPHEN 325 MG TABLET PO PRN (14:22)
[2017-12-19] MEDS: SIMVASTATIN 20 MG TABLET PO SCH (21:47)
[2017-12-19] MEDS: methylPREDNISolone SOD SUCC 40 MG/ML VIAL IVP SCH (21:49)
[2017-12-19] MEDS: traZODone HCL 50 MG TABLET (DESYREL) PO SCH (23:06)
[2017-12-20] VITALS (14 sets, daily range): BP systolic 126–158
[2017-12-20] MEDS: HYDROcodone/ACETAMIN 5-325 MG TAB (NORCO/ VICODIN) PO PRN ×4 (00:34→23:37)
[2017-12-20] MEDS: ALBUTEROL SULFATE 0.083% 2.5 MG/3 ML VIAL.NEB INH SCH ×4 (01:00→20:06)
[2017-12-20] MEDS: IPRATROPIUM BROM 0.5 MG/2.5 ML VIAL.NEB (ATROVENT) INH SCH ×4 (01:00→20:07)
[2017-12-20] MEDS: INSULIN REGULAR, HUMAN 100 UNITS/ML, 10 ML VIAL (novoLIN R) SUBCUT PRN (06:34)
[2017-12-20] MEDS: CEFEPIME 1 GM in D5W 50 ML IV SCH ×2 (08:23→20:57)
[2017-12-20] MEDS: methylPREDNISolone SOD SUCC 40 MG/ML VIAL IVP SCH (08:23)
[2017-12-20] MEDS: AMIODARONE HCL 200 MG TABLET PO SCH (08:25)
[2017-12-20] MEDS: FUROSEMIDE 40 MG TABLET PO SCH (08:25)
[2017-12-20] MEDS: FLUoxetine HCL 20 MG CAPSULE (PROzac) PO SCH (08:26)
[2017-12-20] MEDS: PREDNISONE 20 MG TABLET PO SCH (20:56)
[2017-12-20] MEDS: SIMVASTATIN 20 MG TABLET PO SCH (20:56)
[2017-12-20] MEDS: traZODone HCL 50 MG TABLET (DESYREL) PO SCH (20:58)
[2017-12-21 01:00] VITALS: BP_SYST 145
[2017-12-21] MEDS: IPRATROPIUM BROM 0.5 MG/2.5 ML VIAL.NEB (ATROVENT) INH SCH ×3 (01:56→13:15)
[2017-12-21] MEDS: ALBUTEROL SULFATE 0.083% 2.5 MG/3 ML VIAL.NEB INH SCH ×3 (01:56→13:16)
[2017-12-21 08:00] VITALS: BP_SYST 136
[2017-12-21] MEDS: HYDROcodone/ACETAMIN 5-325 MG TAB (NORCO/ VICODIN) PO PRN ×2 (08:02→14:00)
[2017-12-21] MEDS: AMIODARONE HCL 200 MG TABLET PO SCH (08:51)
[2017-12-21] MEDS: FLUoxetine HCL 20 MG CAPSULE (PROzac) PO SCH (08:51)
[2017-12-21] MEDS: FUROSEMIDE 40 MG TABLET PO SCH (08:51)
[2017-12-21] MEDS: PREDNISONE 20 MG TABLET PO SCH (08:51)
[2017-12-21] MEDS: CEFEPIME 1 GM in D5W 50 ML IV SCH (08:52)
[2017-12-21 13:17] VITALS: BP_SYST 119
[2017-12-21] MEDS ORDERED: LEVO500T20 PO (16:24)
[2017-12-21 16:49] VITALS: BP_SYST 133
[2017-12-21 17:05] VITALS: BP_SYST 133
== END 2017-12-21 17:55 | disposition home or self-care (01) | DRG 871 ==
LOC: SED 10:28 → SIC 13:10 → STU 12-20 11:03
PROVIDERS: ADMIT Internal Medicine Hospice and Palliative Medicine; ATTEND Internal Medicine Hospice and Palliative Medicine
PROC: 5A09357 Assistance with Respiratory Ventilation, Less than 24 Consecutive Hours, Continuous Positive Airway Pressure (ICD-10-PCS; principal; 2017-12-17)
DX: A41.9 Sepsis, unspecified organism (principal); R65.21 Severe sepsis with septic shock; J96.20 Acute and chronic respiratory failure, unspecified whether with hypoxia or hypercapnia; J18.9 Pneumonia, unspecified organism; J44.0 Chronic obstructive pulmonary disease with (acute) lower respiratory infection; I50.30 Unspecified diastolic (congestive) heart failure; F11.20 Opioid dependence, uncomplicated; F13.20 Sedative, hypnotic or anxiolytic dependence, uncomplicated; E11.42 Type 2 diabetes mellitus with diabetic polyneuropathy; E03.9 Hypothyroidism, unspecified; I95.9 Hypotension, unspecified; E78.5 Hyperlipidemia, unspecified; F40.240 Claustrophobia; G47.33 Obstructive sleep apnea (adult) (pediatric); G89.29 Other chronic pain; M54.9 Dorsalgia, unspecified; I11.0 Hypertensive heart disease with heart failure; I27.81 Cor pulmonale (chronic); Z86.718 Personal history of other venous thrombosis and embolism; Z91.19 Patient's noncompliance with other medical treatment and regimen; Z99.81 Dependence on supplemental oxygen; Z88.1 Allergy status to other antibiotic agents; Z88.8 Allergy status to other drugs, medicaments and biological substances; Z86.711 Personal history of pulmonary embolism; Z79.899 Other long term (current) drug therapy
CPT/HCPCS: 36415; 36600; 70450-TC; 71045; 80053; 80307; 81000-TC; 82803-TC; 82962; 83605; 84484; 85025; 85610-TC; 85730-TC; 87040-TC; 87081; 87086; 93005; 93306; 94640; 94660; 94760; 96374; 97110-GP; 97116-GP; 97530-GP; 99291; J0692; J1030; J1815; J1956; J2310; J2405; J2930; J7050; J7060; J7512; J7613; J7620

== ENCOUNTER 2019-12-05 16:55 | Emergency (ER) | payer OTHER ==
[~2019-12-05] VITALS: Ht 165.1 cm; Wt 122.5 kg
[~2019-12-05 16:55] MED LIST changes: +BECL8.7A5 INH; -FLUT1DIS3 INH; +HYDR-3924 PO; +IPRA0.2S6 INH; +LEVO500T20 PO; +MELA3TAB64 PO; -ONDA4TAB5 PO; +TOLT1TAB12 PO; +TRAZ-219 PO; -ZOLP10TA6 PO
[2019-12-05 17:34] VITALS: BP_SYST 141
[2019-12-05] MEDS ORDERED: FLUT1DIS3 INH (17:34)
[2019-12-05] MEDS ORDERED: SULF1TAB48 PO (17:34)
[2019-12-05 18:12] LABS: BASOPHILS % (AUTO) 0.5 % (0.0-2.0); EOSINOPHILS % (AUTO) 0.2 % (0.0-4.0); HEMATOCRIT 24.6 % (36-48); HEMOGLOBIN 7.8 g/dL (12.0-16.0); LYMPHOCYTES # (AUTO) 0.4 K/uL (1.0-5.5); MEAN CORPUSCULAR HEMOGLOBIN 27 pg (27-31); MEAN CORPUSCULAR HGB CONC 32 % (32-36); MEAN CORPUSCULAR VOLUME 85 fL (79.0-98.0); MONOCYTES # (AUTO) 0.9 K/uL (0.0-1.0); MONOCYTES % (AUTO) 10.5 % (1.7-9.3); NEUTROPHILS # (AUTO) 7.5 K/uL (1.8-7.7); NEUTROPHILS % (AUTO) 83.8 % (40.0-70.0); PLATELET COUNT (AUTO) 271 K/uL (130-430); RED BLOOD CELL COUNT(AUTO) 2.91 MIL/uL (4.2-6.2); RED CELL DISTRIBUTION WIDTH 15.8 % (9.0-15.0); WHITE BLOOD COUNT (AUTO) 8.9 K/uL (4.8-10.8)
[2019-12-05 18:16] LABS: ANION GAP 8 (5-15); CALCIUM 8.7 mg/dL (8.4-11.0); CHLORIDE 101 mmol/L (98-107); CREATININE 1.55 mg/dL (0.55-1.30); GLUCOSE 145 mg/dL (70-99); POTASSIUM 3.5 mmol/L (3.5-5.1); SODIUM SERUM 136 mmol/L (136-145); UREA NITROGEN, BLOOD 24 mg/dL (8-21)
[2019-12-05 18:19] LABS: INR 1.1 (0.8-1.2); PROTHROMBIN TIME 11.4 SECS (9.5-12.5)
[2019-12-05 18:21] LABS: ALANINE AMINOTRANSFERASE 20 U/L (12-78); ASPARTATE AMINOTRANSFERASE 16 U/L (10-37); C-REACTIVE PROTEIN QUANT 9.5 mg/dL (0-0.5); TOTAL BILIRUBIN 0.3 mg/dL (0.0-1.0)
[2019-12-05 18:35] LABS: ALBUMIN 3.3 g/dL (3.4-4.8)
[2019-12-05 19:25] VITALS: BP_SYST 141
== END 2019-12-05 19:25 | disposition home or self-care (01) ==
LOC: SED 16:55
DX: L97.829 Non-pressure chronic ulcer of other part of left lower leg with unspecified severity (principal); E11.9 Type 2 diabetes mellitus without complications; I10 Essential (primary) hypertension; E07.9 Disorder of thyroid, unspecified; E78.00 Pure hypercholesterolemia, unspecified; Z86.711 Personal history of pulmonary embolism; Z86.718 Personal history of other venous thrombosis and embolism; Z79.899 Other long term (current) drug therapy; Z86.73 Personal history of transient ischemic attack (TIA), and cerebral infarction without residual deficits; Z88.1 Allergy status to other antibiotic agents; Z88.8 Allergy status to other drugs, medicaments and biological substances
CPT/HCPCS: 36415; 80053; 83605; 85025; 85610-TC; 85730-TC; 86140; 93971; 99284

== ENCOUNTER 2022-08-26 11:25 | Inpatient (IN) | payer OTHER ==
[~2022-08-26] VITALS: Ht 167.6 cm; Wt 96.6 kg
[~2022-08-26 11:25] MED LIST changes: -AMI200 PO; +AMIO200T66 PO; -BECL8.7A5 INH; +FLUT1DIS3 INH; -HYDR-3924 PO; -IPRA0.2S6 INH; -LEVO500T20 PO; -MECL12.584 PO; -MELA3TAB64 PO; +SIMV-343 PO; -SIMV20TA2 PO; +SULF1TAB48 PO; -TOLT1TAB12 PO; -TRAZ-219 PO
[2022-08-26 11:30] VITALS: BP_SYST 125
[2022-08-26] MEDS ORDERED: HYDROcodone/ACETAMIN 5-325 MG TAB (NORCO/ VICODIN) PO ONE ×2 (12:30)
[2022-08-26 12:44] LABS: BASOPHILS % (AUTO) 0.5 % (0.0-2.0); EOSINOPHILS # (AUTO) 0.3 K/uL (0.0-0.4); EOSINOPHILS % (AUTO) 3.8 % (0.0-4.0); HEMATOCRIT 36.8 % (36-48); HEMOGLOBIN 12.6 g/dL (12.0-16.0); LYMPHOCYTES # (AUTO) 0.9 K/uL (1.0-5.5); LYMPHOCYTES % (AUTO) 13.9 % (20.5-51.5); MEAN CORPUSCULAR HEMOGLOBIN 34 pg (27-31); MEAN CORPUSCULAR HGB CONC 34 % (32-36); MEAN CORPUSCULAR VOLUME 99 fL (79.0-98.0); MONOCYTES # (AUTO) 0.7 K/uL (0.0-1.0); MONOCYTES % (AUTO) 10.8 % (1.7-9.3); NEUTROPHILS # (AUTO) 4.7 K/uL (1.8-7.7); PLATELET COUNT (AUTO) 169 K/uL (130-430); RED BLOOD CELL COUNT(AUTO) 3.71 MIL/uL (4.2-6.2); RED CELL DISTRIBUTION WIDTH 13.5 % (9.0-15.0); WHITE BLOOD COUNT (AUTO) 6.6 K/uL (4.8-10.8)
[2022-08-26 13:02] LABS: ALANINE AMINOTRANSFERASE 25 U/L (12-78); ALBUMIN 3.1 g/dL (3.4-4.8); ANION GAP 7 (5-15); ASPARTATE AMINOTRANSFERASE 22 U/L (10-37); CALCIUM 10.8 mg/dL (8.4-11.0); CHLORIDE 103 mmol/L (98-107); CREATININE 1.28 mg/dL (0.55-1.30); GLUCOSE 106 mg/dL (70-99); TOTAL BILIRUBIN 0.6 mg/dL (0.0-1.0); UREA NITROGEN, BLOOD 27 mg/dL (8-21)
[2022-08-26] MEDS ORDERED: FLUT1AER INH (15:03)
[2022-08-26] MEDS ORDERED: FURO-150 PO (15:03)
[2022-08-26] MEDS ORDERED: AMIO200T66 PO (15:03)
[2022-08-26] MEDS ORDERED: PRO20 PO (15:03)
[2022-08-26] MEDS ORDERED: FERR236T3 PO (15:03)
[2022-08-26] MEDS ORDERED: BACL10TA PO (15:03)
[2022-08-26] MEDS ORDERED: CIPR250T4 PO (15:03)
[2022-08-26] MEDS ORDERED: NEU300 PO (15:03)
[2022-08-26] MEDS ORDERED: TRAZ-251 PO (15:03)
[2022-08-26] MEDS ORDERED: SIMV80TA88 PO (15:03)
[2022-08-26] MEDS ORDERED: MORPHINE 2 MG/ML INJ. SYRINGE IVP PRN (16:30)
[2022-08-26] MEDS ORDERED: ACETAMINOPHEN 325 MG TABLET PO PRN (16:45)
[2022-08-26 18:00] VITALS: BP_SYST 112
[2022-08-26 18:16] VITALS: BP_SYST 112
[2022-08-27] VITALS (7 sets, daily range): BP systolic 89–135
[2022-08-27 05:27] LABS: BASOPHILS % (AUTO) 0.7 % (0.0-2.0); EOSINOPHILS # (AUTO) 0.3 K/uL (0.0-0.4); EOSINOPHILS % (AUTO) 5.4 % (0.0-4.0); HEMATOCRIT 32.9 % (36-48); HEMOGLOBIN 11.5 g/dL (12.0-16.0); LYMPHOCYTES # (AUTO) 1.1 K/uL (1.0-5.5); LYMPHOCYTES % (AUTO) 19.4 % (20.5-51.5); MEAN CORPUSCULAR HEMOGLOBIN 34 pg (27-31); MEAN CORPUSCULAR HGB CONC 35 % (32-36); MEAN CORPUSCULAR VOLUME 98 fL (79.0-98.0); MONOCYTES # (AUTO) 0.7 K/uL (0.0-1.0); MONOCYTES % (AUTO) 11.8 % (1.7-9.3); NEUTROPHILS # (AUTO) 3.6 K/uL (1.8-7.7); NEUTROPHILS % (AUTO) 62.7 % (40.0-70.0); PLATELET COUNT (AUTO) 161 K/uL (130-430); RED BLOOD CELL COUNT(AUTO) 3.34 MIL/uL (4.2-6.2); RED CELL DISTRIBUTION WIDTH 13.4 % (9.0-15.0); WHITE BLOOD COUNT (AUTO) 5.8 K/uL (4.8-10.8)
[2022-08-27 05:57] LABS: ALANINE AMINOTRANSFERASE 23 U/L (12-78); ALBUMIN 2.6 g/dL (3.4-4.8); ANION GAP 6 (5-15); ASPARTATE AMINOTRANSFERASE 19 U/L (10-37); CALCIUM 10.5 mg/dL (8.4-11.0); CHLORIDE 104 mmol/L (98-107); CREATININE 1.09 mg/dL (0.55-1.30); GLUCOSE 97 mg/dL (70-99); TOTAL BILIRUBIN 0.6 mg/dL (0.0-1.0); UREA NITROGEN, BLOOD 25 mg/dL (8-21)
[2022-08-27] MEDS: HYDROcodone/ACETAMIN 5-325 MG TAB (NORCO/ VICODIN) PO PRN (12:47)
[2022-08-27] MEDS ORDERED: FUROSEMIDE 40 MG TABLET PO ONE (15:30)
[2022-08-27] MEDS ORDERED: AMIODARONE HCL 200 MG TABLET PO ONE (15:30)
[2022-08-27] MEDS: BUDESONIDE 0.5 MG/2 ML AMPUL.NEB INH SCH (20:18)
[2022-08-27] MEDS: ALBUTEROL SULFATE 0.083% 2.5 MG/3 ML VIAL.NEB INH SCH (20:18)
[2022-08-27] MEDS: BACLOFEN 10 MG TABLET PO SCH (21:45)
[2022-08-27] MEDS: GABAPENTIN 300 MG CAPSULE PO SCH (21:45)
[2022-08-27] MEDS: traZODone HCL 50 MG TABLET (DESYREL) PO SCH (21:46)
[2022-08-27] MEDS: HEPARIN SODIUM,PORCINE 5,000 UNITS/ML VIAL SUBCUT SCH (21:47)
[2022-08-28 01:41] VITALS: BP_SYST 100
[2022-08-28] MEDS: ALBUTEROL SULFATE 0.083% 2.5 MG/3 ML VIAL.NEB INH SCH ×4 (02:16→19:45)
[2022-08-28] MEDS: HYDROcodone/ACETAMIN 5-325 MG TAB (NORCO/ VICODIN) PO PRN (04:25)
[2022-08-28 06:52] LABS: BASOPHILS % (AUTO) 0.5 % (0.0-2.0); EOSINOPHILS # (AUTO) 0.3 K/uL (0.0-0.4); HEMATOCRIT 36.1 % (36-48); HEMOGLOBIN 12.5 g/dL (12.0-16.0); LYMPHOCYTES # (AUTO) 1.6 K/uL (1.0-5.5); LYMPHOCYTES % (AUTO) 25.9 % (20.5-51.5); MEAN CORPUSCULAR HEMOGLOBIN 34 pg (27-31); MEAN CORPUSCULAR HGB CONC 35 % (32-36); MEAN CORPUSCULAR VOLUME 98 fL (79.0-98.0); MONOCYTES # (AUTO) 0.7 K/uL (0.0-1.0); MONOCYTES % (AUTO) 10.9 % (1.7-9.3); NEUTROPHILS # (AUTO) 3.7 K/uL (1.8-7.7); NEUTROPHILS % (AUTO) 58.7 % (40.0-70.0); PLATELET COUNT (AUTO) 188 K/uL (130-430); RED BLOOD CELL COUNT(AUTO) 3.68 MIL/uL (4.2-6.2); RED CELL DISTRIBUTION WIDTH 13.5 % (9.0-15.0); WHITE BLOOD COUNT (AUTO) 6.3 K/uL (4.8-10.8)
[2022-08-28] MEDS: BUDESONIDE 0.5 MG/2 ML AMPUL.NEB INH SCH ×2 (07:32→19:55)
[2022-08-28 07:46] LABS: ALANINE AMINOTRANSFERASE 25 U/L (12-78); ALBUMIN 2.7 g/dL (3.4-4.8); ANION GAP 11 (5-15); ASPARTATE AMINOTRANSFERASE 24 U/L (10-37); CALCIUM 10.8 mg/dL (8.4-11.0); CHLORIDE 100 mmol/L (98-107); CREATININE 1.27 mg/dL (0.55-1.30); GLUCOSE 96 mg/dL (70-99); TOTAL BILIRUBIN 0.9 mg/dL (0.0-1.0); UREA NITROGEN, BLOOD 24 mg/dL (8-21)
[2022-08-28 08:06] LABS: AFP, TUMOR MARKER 3.7 ng/mL (0.0-9.2)
[2022-08-28] MEDS: AMIODARONE HCL 200 MG TABLET PO SCH (09:00)
[2022-08-28] MEDS: FLUoxetine HCL 20 MG CAPSULE (PROzac) PO SCH (09:00)
[2022-08-28] MEDS ORDERED: FLUTICASONE 250 mCg/SALMETEROL 50 mCg DISKUS W.DEV INH SCH (09:00)
[2022-08-28] MEDS: GABAPENTIN 300 MG CAPSULE PO SCH ×2 (10:04→20:44)
[2022-08-28] MEDS: SIMVASTATIN 20 MG TABLET PO SCH (10:06)
[2022-08-28] MEDS: BACLOFEN 10 MG TABLET PO SCH ×2 (10:06→20:44)
[2022-08-28] MEDS: HEPARIN SODIUM,PORCINE 5,000 UNITS/ML VIAL SUBCUT SCH ×2 (10:20→21:00)
[2022-08-28 11:40] VITALS: BP_SYST 106
[2022-08-28 16:20] VITALS: BP_SYST 96
[2022-08-28 20:00] VITALS: BP_SYST 103
[2022-08-28] MEDS: traZODone HCL 50 MG TABLET (DESYREL) PO SCH (20:44)
[2022-08-29 00:26] VITALS: BP_SYST 101
[2022-08-29] MEDS: ALBUTEROL SULFATE 0.083% 2.5 MG/3 ML VIAL.NEB INH SCH ×4 (01:10→20:43)
[2022-08-29 05:08] VITALS: BP_SYST 103
[2022-08-29 06:42] LABS: ALANINE AMINOTRANSFERASE 27 U/L (12-78); ALBUMIN 2.7 g/dL (3.4-4.8); ANION GAP 7 (5-15); ASPARTATE AMINOTRANSFERASE 25 U/L (10-37); CALCIUM 10.5 mg/dL (8.4-11.0); CHLORIDE 101 mmol/L (98-107); CREATININE 1.48 mg/dL (0.55-1.30); GLUCOSE 89 mg/dL (70-99); TOTAL BILIRUBIN 0.9 mg/dL (0.0-1.0); UREA NITROGEN, BLOOD 35 mg/dL (8-21)
[2022-08-29] MEDS: BUDESONIDE 0.5 MG/2 ML AMPUL.NEB INH SCH ×2 (07:18→20:43)
[2022-08-29] MEDS: HYDROcodone/ACETAMIN 5-325 MG TAB (NORCO/ VICODIN) PO PRN ×2 (08:56→20:59)
[2022-08-29] MEDS: GABAPENTIN 300 MG CAPSULE PO SCH ×2 (10:10→20:42)
[2022-08-29] MEDS: FLUoxetine HCL 20 MG CAPSULE (PROzac) PO SCH (10:10)
[2022-08-29] MEDS: AMIODARONE HCL 200 MG TABLET PO SCH (10:13)
[2022-08-29] MEDS: BACLOFEN 10 MG TABLET PO SCH ×2 (10:13→20:42)
[2022-08-29] MEDS: SIMVASTATIN 20 MG TABLET PO SCH (10:16)
[2022-08-29] MEDS: HEPARIN SODIUM,PORCINE 5,000 UNITS/ML VIAL SUBCUT SCH ×2 (10:25→20:44)
[2022-08-29 11:00] VITALS: BP_SYST 94
[2022-08-29 15:40] VITALS: BP_SYST 97
[2022-08-29] MEDS ORDERED: LORazepam 1 MG TABLET PO PRN (17:15)
[2022-08-29 20:00] VITALS: BP_SYST 96
[2022-08-29] MEDS: traZODone HCL 50 MG TABLET (DESYREL) PO SCH (20:42)
[2022-08-29 23:48] VITALS: BP_SYST 96
[2022-08-30] MEDS: ALBUTEROL SULFATE 0.083% 2.5 MG/3 ML VIAL.NEB INH SCH ×4 (01:29→20:02)
[2022-08-30 03:48] VITALS: BP_SYST 97
[2022-08-30 06:36] LABS: ALANINE AMINOTRANSFERASE 31 U/L (12-78); ALBUMIN 2.7 g/dL (3.4-4.8); ANION GAP 7 (5-15); ASPARTATE AMINOTRANSFERASE 25 U/L (10-37); CHLORIDE 105 mmol/L (98-107); GLUCOSE 102 mg/dL (70-99); TOTAL BILIRUBIN 0.5 mg/dL (0.0-1.0); UREA NITROGEN, BLOOD 41 mg/dL (8-21)
[2022-08-30] MEDS: BUDESONIDE 0.5 MG/2 ML AMPUL.NEB INH SCH ×2 (07:25→20:02)
[2022-08-30] MEDS: GABAPENTIN 300 MG CAPSULE PO SCH ×2 (08:17→21:27)
[2022-08-30] MEDS: SIMVASTATIN 20 MG TABLET PO SCH ×2 (08:17→09:00)
[2022-08-30] MEDS: FLUoxetine HCL 20 MG CAPSULE (PROzac) PO SCH (08:17)
[2022-08-30] MEDS: BACLOFEN 10 MG TABLET PO SCH ×2 (08:17→21:27)
[2022-08-30] MEDS: HEPARIN SODIUM,PORCINE 5,000 UNITS/ML VIAL SUBCUT SCH ×2 (08:18→21:30)
[2022-08-30] MEDS: AMIODARONE HCL 200 MG TABLET PO SCH (08:19)
[2022-08-30] MEDS ORDERED: FUROSEMIDE 40 MG TABLET PO SCH (09:00)
[2022-08-30] MEDS ORDERED: FUROSEMIDE 20 MG TABLET PO ONE (10:45)
[2022-08-30 11:52] VITALS: BP_SYST 103
[2022-08-30 16:00] VITALS: BP_SYST 105
[2022-08-30 20:00] VITALS: BP_SYST 121
[2022-08-30] MEDS: traZODone HCL 50 MG TABLET (DESYREL) PO SCH (21:27)
[2022-08-31 01:11] VITALS: BP_SYST 113
[2022-08-31] MEDS: ALBUTEROL SULFATE 0.083% 2.5 MG/3 ML VIAL.NEB INH SCH ×4 (01:48→20:44)
[2022-08-31 08:00] VITALS: BP_SYST 114
[2022-08-31] MEDS: BUDESONIDE 0.5 MG/2 ML AMPUL.NEB INH SCH ×2 (08:15→21:02)
[2022-08-31] MEDS: GABAPENTIN 300 MG CAPSULE PO SCH ×2 (09:00→21:22)
[2022-08-31] MEDS: SIMVASTATIN 20 MG TABLET PO SCH (09:00)
[2022-08-31] MEDS: BACLOFEN 10 MG TABLET PO SCH ×2 (09:00→21:22)
[2022-08-31] MEDS: AMIODARONE HCL 200 MG TABLET PO SCH (09:45)
[2022-08-31] MEDS: FLUoxetine HCL 20 MG CAPSULE (PROzac) PO SCH (09:45)
[2022-08-31] MEDS: FUROSEMIDE 20 MG TABLET PO SCH (09:46)
[2022-08-31 12:00] VITALS: BP_SYST 111
[2022-08-31 16:38] VITALS: BP_SYST 112
[2022-08-31] MEDS: HYDROcodone/ACETAMIN 5-325 MG TAB (NORCO/ VICODIN) PO PRN ×2 (16:38→21:22)
[2022-08-31 17:06] LABS: BETA-2 MICROGLOBULIN, SERUM 9.8 mg/L (0.6-2.4)
[2022-08-31 19:00] VITALS: BP_SYST 128
[2022-08-31 20:00] VITALS: BP_SYST 128
[2022-08-31] MEDS: traZODone HCL 50 MG TABLET (DESYREL) PO SCH (21:00)
[2022-08-31] MEDS: CIPROFLOXACIN HCL 500 MG TABLET PO SCH (21:22)
[2022-09-01] VITALS: BP_SYST 124
[2022-09-01] MEDS: ALBUTEROL SULFATE 0.083% 2.5 MG/3 ML VIAL.NEB INH SCH ×4 (02:07→20:01)
[2022-09-01 04:00] VITALS: BP_SYST 123
[2022-09-01] MEDS: ACETAMINOPHEN 325 MG TABLET PO PRN (05:40)
[2022-09-01] MEDS: BUDESONIDE 0.5 MG/2 ML AMPUL.NEB INH SCH ×2 (07:53→20:01)
[2022-09-01 08:00] VITALS: BP_SYST 132
[2022-09-01] MEDS: GABAPENTIN 300 MG CAPSULE PO SCH ×2 (08:56→22:08)
[2022-09-01] MEDS: CIPROFLOXACIN HCL 500 MG TABLET PO SCH ×2 (08:57→22:08)
[2022-09-01] MEDS: FUROSEMIDE 20 MG TABLET PO SCH (08:57)
[2022-09-01] MEDS: AMIODARONE HCL 200 MG TABLET PO SCH (08:58)
[2022-09-01] MEDS: SIMVASTATIN 20 MG TABLET PO SCH (08:58)
[2022-09-01] MEDS: BACLOFEN 10 MG TABLET PO SCH ×2 (08:58→22:09)
[2022-09-01] MEDS: FLUoxetine HCL 20 MG CAPSULE (PROzac) PO SCH (08:58)
[2022-09-01 10:35] LABS: BASOPHILS # (AUTO) 0.1 K/uL (0.0-0.2); BASOPHILS % (AUTO) 0.7 % (0.0-2.0); EOSINOPHILS # (AUTO) 0.1 K/uL (0.0-0.4); HEMATOCRIT 39.3 % (36-48); HEMOGLOBIN 13.3 g/dL (12.0-16.0); LYMPHOCYTES # (AUTO) 1.2 K/uL (1.0-5.5); LYMPHOCYTES % (AUTO) 17.6 % (20.5-51.5); MEAN CORPUSCULAR HEMOGLOBIN 34 pg (27-31); MEAN CORPUSCULAR HGB CONC 34 % (32-36); MEAN CORPUSCULAR VOLUME 100 fL (79.0-98.0); MONOCYTES # (AUTO) 0.7 K/uL (0.0-1.0); MONOCYTES % (AUTO) 10.5 % (1.7-9.3); NEUTROPHILS # (AUTO) 4.9 K/uL (1.8-7.7); NEUTROPHILS % (AUTO) 70.2 % (40.0-70.0); PLATELET COUNT (AUTO) 199 K/uL (130-430); RED BLOOD CELL COUNT(AUTO) 3.94 MIL/uL (4.2-6.2); RED CELL DISTRIBUTION WIDTH 13.4 % (9.0-15.0); WHITE BLOOD COUNT (AUTO) 6.9 K/uL (4.8-10.8)
[2022-09-01 10:54] LABS: ANION GAP 9 (5-15); CALCIUM 11.7 mg/dL (8.4-11.0); CHLORIDE 107 mmol/L (98-107); CREATININE 1.36 mg/dL (0.55-1.30); GLUCOSE 146 mg/dL (70-99); UREA NITROGEN, BLOOD 34 mg/dL (8-21)
[2022-09-01 11:31] VITALS: BP_SYST 121
[2022-09-01 12:26] LABS: BILIRUBIN,URINE NEGATIVE (NEGATIVE); CLARITY/URINE CLOUDY (CLEAR); COLOR,URINE YELLOW (YELLOW); GLUCOSE,URINE NEGATIVE (NEGATIVE); KETONES,URINE NEGATIVE (NEGATIVE); LEUKOCYTE ESTERASE ,URINE 3+ (NEGATIVE); NITRITE, URINE POSITIVE (NEGATIVE); PH,URINE 8.5 (5.0-8.0); PROTEIN URINE NEGATIVE (NEGATIVE); UROBILINOGEN,URINE 0.2 (0.2-1.0)
[2022-09-01 12:52] LABS: BLOOD, URINE TRACE (NEGATIVE)
[2022-09-01 13:03] LABS: BACTERIA,URINE FEW /HPF (None Seen)
[2022-09-01 13:04] LABS: URINE AMORPHOUS PHOSPHATES 3+ /HPF (None Seen)
[2022-09-01 15:15] VITALS: BP_SYST 127
[2022-09-01] MEDS: traZODone HCL 50 MG TABLET (DESYREL) PO SCH (22:22)
[2022-09-02] MEDS: ALBUTEROL SULFATE 0.083% 2.5 MG/3 ML VIAL.NEB INH SCH ×4 (00:50→20:00)
[2022-09-02 01:04] VITALS: BP_SYST 115
[2022-09-02] MEDS: BUDESONIDE 0.5 MG/2 ML AMPUL.NEB INH SCH ×2 (07:18→20:11)
[2022-09-02 08:00] VITALS: BP_SYST 106
[2022-09-02] MEDS: FUROSEMIDE 20 MG TABLET PO SCH (08:55)
[2022-09-02] MEDS: FLUoxetine HCL 20 MG CAPSULE (PROzac) PO SCH (08:55)
[2022-09-02] MEDS: BACLOFEN 10 MG TABLET PO SCH ×2 (08:55→21:06)
[2022-09-02] MEDS: CIPROFLOXACIN HCL 500 MG TABLET PO SCH (08:55)
[2022-09-02] MEDS: GABAPENTIN 300 MG CAPSULE PO SCH ×2 (08:55→21:06)
[2022-09-02] MEDS: AMIODARONE HCL 200 MG TABLET PO SCH (08:56)
[2022-09-02] MEDS: SIMVASTATIN 20 MG TABLET PO SCH (08:56)
[2022-09-02 11:50] VITALS: BP_SYST 116
[2022-09-02 16:11] VITALS: BP_SYST 103
[2022-09-02] MEDS: D5/0.45 NS 1,000 ML IV SCH (17:58)
[2022-09-02 20:40] VITALS: BP_SYST 116
[2022-09-02] MEDS: CIPROFLOXACIN LACT 400 MG/D5W 200 ML IV SCH (20:49)
[2022-09-02] MEDS: ACETAMINOPHEN 325 MG TABLET PO PRN (21:06)
[2022-09-02] MEDS: traZODone HCL 50 MG TABLET (DESYREL) PO SCH (21:07)
[2022-09-03 00:32] VITALS: BP_SYST 102
[2022-09-03] MEDS: ALBUTEROL SULFATE 0.083% 2.5 MG/3 ML VIAL.NEB INH SCH ×4 (01:34→20:52)
[2022-09-03] MEDS: BUDESONIDE 0.5 MG/2 ML AMPUL.NEB INH SCH ×2 (07:47→20:52)
[2022-09-03 08:00] VITALS: BP_SYST 106
[2022-09-03] MEDS: FLUoxetine HCL 20 MG CAPSULE (PROzac) PO SCH (09:00)
[2022-09-03] MEDS: BACLOFEN 10 MG TABLET PO SCH ×2 (09:00→23:35)
[2022-09-03] MEDS: CIPROFLOXACIN LACT 400 MG/D5W 200 ML IV SCH ×2 (09:00→23:35)
[2022-09-03] MEDS: SIMVASTATIN 20 MG TABLET PO SCH (09:01)
[2022-09-03] MEDS: FUROSEMIDE 20 MG TABLET PO SCH (09:01)
[2022-09-03] MEDS: GABAPENTIN 300 MG CAPSULE PO SCH ×2 (09:02→23:34)
[2022-09-03] MEDS: AMIODARONE HCL 200 MG TABLET PO SCH (09:02)
[2022-09-03 11:38] VITALS: BP_SYST 95
[2022-09-03] MEDS: D5/0.45 NS 1,000 ML IV SCH (14:10)
[2022-09-03] MEDS: HYDROcodone/ACETAMIN 5-325 MG TAB (NORCO/ VICODIN) PO PRN (15:38)
[2022-09-03 17:13] VITALS: BP_SYST 99
[2022-09-03 20:32] VITALS: BP_SYST 129
[2022-09-03] MEDS: traZODone HCL 50 MG TABLET (DESYREL) PO SCH (23:34)
[2022-09-04] VITALS: BP_SYST 115
[2022-09-04] MEDS: ALBUTEROL SULFATE 0.083% 2.5 MG/3 ML VIAL.NEB INH SCH ×4 (01:45→20:28)
[2022-09-04] MEDS: BUDESONIDE 0.5 MG/2 ML AMPUL.NEB INH SCH ×2 (07:48→20:28)
[2022-09-04 08:00] VITALS: BP_SYST 109
[2022-09-04] MEDS: CIPROFLOXACIN LACT 400 MG/D5W 200 ML IV SCH (09:06)
[2022-09-04] MEDS: GABAPENTIN 300 MG CAPSULE PO SCH ×2 (09:07→20:17)
[2022-09-04] MEDS: BACLOFEN 10 MG TABLET PO SCH ×2 (09:07→20:18)
[2022-09-04] MEDS: AMIODARONE HCL 200 MG TABLET PO SCH (09:09)
[2022-09-04] MEDS: SIMVASTATIN 20 MG TABLET PO SCH (09:09)
[2022-09-04] MEDS: FLUoxetine HCL 20 MG CAPSULE (PROzac) PO SCH (09:10)
[2022-09-04 11:33] VITALS: BP_SYST 103
[2022-09-04] MEDS: FUROSEMIDE 20 MG TABLET PO SCH (11:53)
[2022-09-04] MEDS: D5/0.45 NS 1,000 ML IV SCH (11:54)
[2022-09-04] MEDS ORDERED: DIPHENHYDRAMINE INJ 50 MG/ML VIAL IVP PRN (15:30)
[2022-09-04 16:59] VITALS: BP_SYST 101
[2022-09-04] MEDS: cefTRIAXone 1 GM in D5W 50 ML IV SCH (17:02)
[2022-09-04 20:00] VITALS: BP_SYST 119
[2022-09-04] MEDS: traZODone HCL 50 MG TABLET (DESYREL) PO SCH (20:18)
[2022-09-05] VITALS: BP_SYST 127
[2022-09-05] MEDS: ALBUTEROL SULFATE 0.083% 2.5 MG/3 ML VIAL.NEB INH SCH ×4 (04:12→19:43)
[2022-09-05 05:55] LABS: BASOPHILS # (AUTO) 0.1 K/uL (0.0-0.2); BASOPHILS % (AUTO) 0.6 % (0.0-2.0); EOSINOPHILS # (AUTO) 0.1 K/uL (0.0-0.4); EOSINOPHILS % (AUTO) 1.6 % (0.0-4.0); HEMATOCRIT 36.3 % (36-48); HEMOGLOBIN 12.4 g/dL (12.0-16.0); LYMPHOCYTES # (AUTO) 2.4 K/uL (1.0-5.5); LYMPHOCYTES % (AUTO) 27.2 % (20.5-51.5); MEAN CORPUSCULAR HEMOGLOBIN 34 pg (27-31); MEAN CORPUSCULAR HGB CONC 34 % (32-36); MEAN CORPUSCULAR VOLUME 99 fL (79.0-98.0); MONOCYTES # (AUTO) 1.1 K/uL (0.0-1.0); MONOCYTES % (AUTO) 11.9 % (1.7-9.3); NEUTROPHILS # (AUTO) 5.3 K/uL (1.8-7.7); NEUTROPHILS % (AUTO) 58.7 % (40.0-70.0); PLATELET COUNT (AUTO) 157 K/uL (130-430); RED BLOOD CELL COUNT(AUTO) 3.67 MIL/uL (4.2-6.2)
[2022-09-05 06:15] LABS: ANION GAP 8 (5-15); CALCIUM 11.1 mg/dL (8.4-11.0); CHLORIDE 107 mmol/L (98-107); CREATININE 1.22 mg/dL (0.55-1.30); GLUCOSE 135 mg/dL (70-99); UREA NITROGEN, BLOOD 43 mg/dL (8-21)
[2022-09-05] MEDS: D5/0.45 NS 1,000 ML IV SCH (06:33)
[2022-09-05] MEDS: BUDESONIDE 0.5 MG/2 ML AMPUL.NEB INH SCH ×2 (07:29→19:43)
[2022-09-05 08:00] VITALS: BP_SYST 112
[2022-09-05] MEDS: FLUoxetine HCL 20 MG CAPSULE (PROzac) PO SCH (08:25)
[2022-09-05] MEDS: AMIODARONE HCL 200 MG TABLET PO SCH (08:26)
[2022-09-05] MEDS: BACLOFEN 10 MG TABLET PO SCH ×2 (08:26→21:28)
[2022-09-05] MEDS: GABAPENTIN 300 MG CAPSULE PO SCH ×2 (08:26→21:28)
[2022-09-05] MEDS: FUROSEMIDE 20 MG TABLET PO SCH (08:27)
[2022-09-05] MEDS: SIMVASTATIN 20 MG TABLET PO SCH (08:29)
[2022-09-05 12:06] VITALS: BP_SYST 110
[2022-09-05] MEDS ORDERED: PAMIDRONATE DISODIUM 30 MG in NS 500 ML IV ONE (14:00)
[2022-09-05] MEDS ORDERED: CALCITONIN SALMON,SYNTHETIC 200 UNITS/ML VIAL IM ONE (14:00)
[2022-09-05 16:22] VITALS: BP_SYST 98
[2022-09-05 16:53] LABS: BILIRUBIN,URINE NEGATIVE (NEGATIVE); COLOR,URINE YELLOW (YELLOW); GLUCOSE,URINE NEGATIVE (NEGATIVE); KETONES,URINE NEGATIVE (NEGATIVE); LEUKOCYTE ESTERASE ,URINE 2+ (NEGATIVE); NITRITE, URINE NEGATIVE (NEGATIVE); PROTEIN URINE NEGATIVE (NEGATIVE); UROBILINOGEN,URINE 0.2 (0.2-1.0)
[2022-09-05 17:01] LABS: BLOOD, URINE TRACE (NEGATIVE); CLARITY/URINE SLIGHTLY HAZY (CLEAR)
[2022-09-05 17:12] LABS: WBC,URINE 20-50 /HPF (0-3)
[2022-09-05 17:13] LABS: BACTERIA,URINE FEW /HPF (None Seen); FINE GRANULAR CASTS,URINE 0-10 /LPF (None Seen); HYALINE CASTS, URINE 0-10 /LPF (None Seen); URINE AMORPHOUS URATE 1+ /HPF (None Seen)
[2022-09-05 17:14] LABS: MUCUS,URINE None Seen /LPF (None Seen)
[2022-09-05 20:30] VITALS: BP_SYST 116
[2022-09-05] MEDS: cefTRIAXone 1 GM in D5W 50 ML IV SCH (20:42)
[2022-09-05] MEDS: traZODone HCL 50 MG TABLET (DESYREL) PO SCH (21:29)
[2022-09-06 00:33] VITALS: BP_SYST 110
[2022-09-06] MEDS: ALBUTEROL SULFATE 0.083% 2.5 MG/3 ML VIAL.NEB INH SCH ×4 (00:58→20:46)
[2022-09-06 05:46] LABS: ANION GAP 7 (5-15); CALCIUM 9.9 mg/dL (8.4-11.0); CHLORIDE 109 mmol/L (98-107); CREATININE 1.14 mg/dL (0.55-1.30); GLUCOSE 141 mg/dL (70-99); UREA NITROGEN, BLOOD 45 mg/dL (8-21)
[2022-09-06] MEDS: D5/0.45 NS 1,000 ML IV SCH (06:27)
[2022-09-06] MEDS: BUDESONIDE 0.5 MG/2 ML AMPUL.NEB INH SCH ×2 (07:15→20:52)
[2022-09-06 08:00] VITALS: BP_SYST 100
[2022-09-06] MEDS: SIMVASTATIN 20 MG TABLET PO SCH (08:45)
[2022-09-06] MEDS: BACLOFEN 10 MG TABLET PO SCH ×2 (08:45→21:13)
[2022-09-06] MEDS: FUROSEMIDE 20 MG TABLET PO SCH (08:46)
[2022-09-06] MEDS: FLUoxetine HCL 20 MG CAPSULE (PROzac) PO SCH (08:46)
[2022-09-06] MEDS: GABAPENTIN 300 MG CAPSULE PO SCH ×2 (08:46→21:14)
[2022-09-06] MEDS: AMIODARONE HCL 200 MG TABLET PO SCH (08:48)
[2022-09-06] MEDS: CALCITONIN SALMON,SYNTHETIC 200 UNITS/ML VIAL IM SCH (10:01)
[2022-09-06] MEDS ORDERED: SULF1TAB47 PO (11:58)
[2022-09-06 13:11] VITALS: BP_SYST 102
[2022-09-06] MEDS: cefTRIAXone 1 GM in D5W 50 ML IV SCH (18:10)
[2022-09-06 18:13] VITALS: BP_SYST 107
[2022-09-06] MEDS: traZODone HCL 50 MG TABLET (DESYREL) PO SCH (21:15)
[2022-09-06 23:52] VITALS: BP_SYST 107
[2022-09-07] VITALS: BP_SYST 116
[2022-09-07] MEDS: D5/0.45 NS 1,000 ML IV SCH (00:50)
[2022-09-07] MEDS: ALBUTEROL SULFATE 0.083% 2.5 MG/3 ML VIAL.NEB INH SCH ×3 (01:06→13:31)
[2022-09-07 03:32] VITALS: BP_SYST 116
[2022-09-07] MEDS: BUDESONIDE 0.5 MG/2 ML AMPUL.NEB INH SCH (07:21)
[2022-09-07] MEDS: BACLOFEN 10 MG TABLET PO SCH (08:56)
[2022-09-07] MEDS: SIMVASTATIN 20 MG TABLET PO SCH (08:56)
[2022-09-07] MEDS: FUROSEMIDE 20 MG TABLET PO SCH (09:00)
[2022-09-07] MEDS: GABAPENTIN 300 MG CAPSULE PO SCH (09:00)
[2022-09-07] MEDS: AMIODARONE HCL 200 MG TABLET PO SCH (09:00)
[2022-09-07] MEDS: FLUoxetine HCL 20 MG CAPSULE (PROzac) PO SCH (09:00)
[2022-09-07] MEDS ORDERED: SULFAMETHOXAZOLE/TRIMETHOPR DS 1 TABLET PO ONE (10:45)
[2022-09-07 11:18] LABS: ALBUMIN 2.6; ALPHA-1-GLOBULIN 0.3; GAMMA GLOBULIN 0.4
[2022-09-07 11:19] LABS: GLOBULIN, TOTAL 2.7; SPE INTERPRETATION SEE ATTACHED
[2022-09-07 11:51] VITALS: BP_SYST 93
[2022-09-07] MEDS: CALCITONIN SALMON,SYNTHETIC 200 UNITS/ML VIAL IM SCH (11:55)
[2022-09-07 15:16] VITALS: BP_SYST 110
== END 2022-09-07 23:45 | disposition hospice, home (50) | DRG 687 ==
LOC: SED 11:25 → STU 16:45 → SMU 09-07 11:22
PROVIDERS: ADMIT Student in an Organized Health Care Education/Training Program; ATTEND Student in an Organized Health Care Education/Training Program
PROC: 5A09357 Assistance with Respiratory Ventilation, Less than 24 Consecutive Hours, Continuous Positive Airway Pressure (ICD-10-PCS; principal; 2022-09-05)
PROC: 5A09357 Assistance with Respiratory Ventilation, Less than 24 Consecutive Hours, Continuous Positive Airway Pressure (ICD-10-PCS; 2022-09-06)
PROC: 5A09357 Assistance with Respiratory Ventilation, Less than 24 Consecutive Hours, Continuous Positive Airway Pressure (ICD-10-PCS; 2022-09-07)
DX: C67.9 Malignant neoplasm of bladder, unspecified (principal); C79.51 Secondary malignant neoplasm of bone; E44.0 Moderate protein-calorie malnutrition; N39.0 Urinary tract infection, site not specified; N17.9 Acute kidney failure, unspecified; E86.0 Dehydration; I11.0 Hypertensive heart disease with heart failure; E78.00 Pure hypercholesterolemia, unspecified; I25.10 Atherosclerotic heart disease of native coronary artery without angina pectoris; J44.9 Chronic obstructive pulmonary disease, unspecified; I50.9 Heart failure, unspecified; M89.9 Disorder of bone, unspecified; Z66 Do not resuscitate; N20.0 Calculus of kidney; Z20.822 Contact with and (suspected) exposure to COVID-19; Z88.0 Allergy status to penicillin; Z88.8 Allergy status to other drugs, medicaments and biological substances; Z79.899 Other long term (current) drug therapy; Z86.718 Personal history of other venous thrombosis and embolism; Z79.01 Long term (current) use of anticoagulants; Z86.711 Personal history of pulmonary embolism; Z87.440 Personal history of urinary (tract) infections
CPT/HCPCS: 36415; 71045; 71250-TC; 76376; 78306; 80048; 80053; 81000; 82105; 82232; 82378; 83880; 83970; 84155; 84165; 84484; 85025; 86300; 86301; 86304; 87086; 94640; 94660; 94760; 97110-GP; 97163-GP; 97530-GP; 99285; A9503; G0378; J0630; J0696; J0744; J1644; J2270; J2430; J7040; J7060; J7613; J7626